=== PATIENT | female | born 1970 | race Caucasian/White ===

== ENCOUNTER 2019-11-13 09:41 | Outpatient (CLI) | payer BC, SELFPAY ==
--- NOTE | ~2019-11-13 | XR_ITS ---
EXAMINATION: XR pelvis 1-2V INDICATION: Bilateral hip pain TECHNIQUE: AP and frog-leg views of the pelvis are obtained. COMPARISON: None available FINDINGS: There is mild bilateral hip osteoarthritis. Bone alignment is normal. There is no fracture. Phleboliths are noted in the pelvis. IMPRESSION: 1. Mild osteoarthritis of the hips. Reviewed, dictated and finalized at location A. ATION MANAGERS
--- NOTE | ~2019-11-13 | XR_ITS ---
EXAMINATION: XR lumbar spine 2-3V DATE: 11/13/2019 10:06 INDICATION: Low back pain TECHNIQUE: Anteroposterior and lateral views of the lumbar spine, and cone-down lateral view of the l umbosacral junction were obtained. COMPARISON: None. FINDINGS: There is no fracture, dislocation, or subluxation. The vertebral body heights are normal. T here is moderate loss of intervertebral disc space height at L5-S1. There are 5 degrees of lumbar dex trocurvature. Phleboliths are noted in the pelvis. The bowel gas pattern is normal. There is mild fac et osteoarthritis of the lower lumbar spine. IMPRESSION: 1. Mild lumbar spondylosis without acute findings. Reviewed, dictated and finalized at location A. ENT POSTER
== END 2019-11-13 09:42 | disposition home or self-care (01) ==
LOC: CHSIMG 09:43
PROVIDERS: PCP Internal Medicine; Visit Provider Internal Medicine
DX: M54.5 Low back pain (principal); M25.552 Pain in left hip; M25.551 Pain in right hip; Z85.3 Personal history of malignant neoplasm of breast
CPT/HCPCS: 72100; 72170

== ENCOUNTER 2019-11-15 05:46 | Emergency (ER) | payer BC, SELFPAY ==
--- NOTE | ~2019-11-15 | XR_ITS ---
EXAMINATION: XR chest 2V DATE: 11/15/2019 06:29 INDICATION: Pleuritic chest pain. TECHNIQUE: Frontal and lateral views of the chest were obtained. COMPARISON: Chest 2 views 03/17/2019, chest CT 01/31/2019 FINDINGS: There is mild scarring at the lung apices. No pleural effusion or pneumothorax. The heart s ize is normal. Surgical clips overlie the chest bilaterally. There are bilateral breast implants. IMPRESSION: 1. Mild scarring at the lung apices. Reviewed, dictated and finalized at location A. N AND RECTAL SURGEON
[2019-11-15 05:50] VITALS: BP 121/69; PULSE 117; RESP 20; TEMP 36.8; O2SAT 95
[2019-11-15 05:58] VITALS: O2SAT 95
--- NOTE | 2019-11-15 05:59 | ED.SOB ---
HPI - SOB/Dyspnea General Chief Complaint: Shortness of Breath/Dyspnea Stated Complaint: Shortness of Breath Time Seen by Provider: 11/15/19 05:59 Source: patient Mode of arrival: ambulatory Limitations: no limitations History of Present Illness HPI Narrative: 49-year-old woman comes in today complaining of pruritic pain on her right side of her back. Patient states that it hurts worse when she takes deep breath. She denies cough or cold symptoms, nausea, vomiting, dysuria, hematuria. She states that she had similar symptoms in the past year and she was diagnosed with a pneumonia. CTA chest in January of 2019 was negative. She has no history of smoking or lung disease. MD elicited complaint: shortness of breath and chest pain Pertinent past history: pneumonia Onset (ago): hour(s) (6) Timing: intermittent Severity: moderate Exacerbating factors: inspiration Relieving factors: nothing Associated symptoms: denies other symptoms Treatment prior to arrival: none Related Data Home oxygen amount: none Home Medications Medication Instructions Recorded Confirmed anastrozole 1 mg PO DAILY 11/15/19 11/15/19 atorvastatin 20 mg PO DAILY 11/15/19 11/15/19 mirtazapine 7.5 mg PO HS 11/15/19 11/15/19 pantoprazole 40 mg PO DAILY 11/15/19 11/15/19 Allergies Allergy/AdvReac Type Severity Reaction Status Date / Time adhesive tape Allergy Unknown BLISTERS Verified 06/14/19 10:36 WHEN APPLIED TO CHEST AREA. Review of Systems Constitutional: Constitutional: Denies chills, Denies fatigue and Denies fever(s) Eyes: Eyes: Denies change in vision and Denies photophobia ENT: Denies dysphagia, Denies nasal congestion and Denies sore throat Cardiovascular: Cardiovascular: Reports as per HPI, Denies chest pain and Denies radiating jaw, neck or arm pain Respiratory: Respiratory: Reports as per HPI, Denies cough, Denies dyspnea and Denies wheezing Gastrointestinal: Gastrointestinal: Denies abdominal pain, Denies diarrhea, Denies nausea and Denies vomiting Genitourinary: Genitourinary: Denies hematuria and Denies dysuria Musculoskeletal: Musculoskeletal: Reports back pain, Denies myalgias, Denies arthralgias, Denies joint swelling and Denies muscle cramps Integumentary/Breasts: Skin/Breast: Denies pruritus, Denies erythema and Denies rash Neurologic: Denies vertigo, Denies dizziness and Denies syncope Hematologic/Lymphatic: Hematologic/Lymphatic: Denies easy bleeding and Denies easy bruising Allergic/Immunologic: Allergic/Immunologic: Denies lip swelling and Denies wheezing [facility] Past Medical History Medical History Barretts esophagus Dyslipidemia GERD (gastroesophageal reflux disease) History of breast cancer History of cardiac disorder Surgical History Surgical History H/O bilateral mastectomy History of esophagogastroduodenoscopy (EGD) Presence of right artificial knee joint (06/14/19) Social History Social History Smoking status: Never smoker Alcohol intake: current Exam Const: General: healthy appearing and alert Nutritional Appearance: obese Orientation/consciousness: patient oriented x3 Limitations: no limitations HENMT: Ears: external ears normal, TM's normal bilaterally and EAC's normal Mouth: Yes moist mucous membranes Eyes: Conjunctivae: conjunctivae normal Pupils: Equal, round and reactive pupils present EOM: EOMs intact bilaterally Resp: Effort & Inspection: normal respiratory effort and not labored Auscultation: clear to auscultation bilaterally, no rales, no rhonchi and no wheezes Cardio: Rate: regular rate Rhythm: regular rhythm Heart sounds: no murmurs GI: Inspection: non-distended GI Palp: No Tenderness to palpation present (GI) and No Guarding due to palpation present (GI) Auscultation: normal bowel sounds :
[2019-11-15 06:26] LABS: Add Urine Microscopic? YES; Appearance Urine Clear (Clear); Bilirubin Urine Negative (Negative); Blood Urine Negative (Negative); Color Urine Yellow (Yellow); Glucose Urine UA Negative (Negative); Ketones Urine Negative (Negative); Leukocyte Esterase Ur Negative (Negative); Nitrate Urine Positive (Negative); Protein Urine Negative (Negative); Specific Grav Ur 1.015 (1.010-1.020); Urobilinogen Urine 0.2 mg/dL (0.2-1.0)
[2019-11-15 06:33] LABS: Basophils Absolute Auto 0.04 K/mm3 (0.00-0.10); Basophils Percent Auto 0.4 % (0.0-1.0); Eosinophils Absolute Auto 0.15 K/mm3 (0.02-0.50); Eosinophils Percent Auto 1.6 % (1.0-6.0); Hemoglobin 12.1 g/dL (12.0-15.0); Immature Granulocyte Absolute 0.03 K/mm3 (0.00-0.00); Immature Granulocyte Percent A 0.3 % (0.0-0.0); Lymphocytes Percent Auto 21.9 % (18.0-42.0); Mean Corpuscular HGB Conc 33.6 g/dL (32.0-36.0); Mean Corpuscular Volume 95.2 fL (78.0-102.0); Monocytes Absolute Auto 0.62 K/mm3 (0.10-0.90); Monocytes Percent Auto 6.8 % (2.0-11.0); Neutrophils Absolute Auto 6.3 K/mm3 (1.7-7.2); Platelet Count Result 207 K/mm3 (150-420); Red Blood Count 3.78 M/mm3 (4.20-5.40); Red Cell Distribution Width 13.6 % (11.6-14.4); White Blood Count 9.1 K/mm3 (4.8-10.8)
[2019-11-15 06:35] LABS: Bacteria Urine 3+ /hpf; RBC Urine 0-2 /hpf (0-2); WBC Urine 0-3 /hpf (0-3)
[2019-11-15 06:49] LABS: Alanine Aminotransferase 30 U/L (14-59); Albumin Level 3.3 g/dL (3.4-5.0); Alkaline Phosphatase 108 U/L (46-116); Anion Gap 12.6 mmol/L (7-16); Aspartate Amino Transferase 22 U/L (15-37); Bilirubin,Total 0.6 mg/dL (0.00-1.00); Blood Urea Nitrogen 15 mg/dL (7-18); Calcium 9.3 mg/dL (8.5-10.1); Carbon Dioxide 30 mmol/L (21-32); Chloride 103 mmol/L (98-108); Estimated CRCL calculation 78 ml/min; Estimated Glomerular Filt Rate 58; Glucose 112 mg/dL (70-99); Osmolality Calculated 295 mOsm/kg (285-295); Potassium 3.6 mmol/L (3.5-5.1); Sodium 142 mmol/L (136-145)
[2019-11-15 07:00] VITALS: BP 115/68; PULSE 100; RESP 18; O2SAT 96
== END 2019-11-15 07:05 | disposition home or self-care (01) ==
PROVIDERS: Emergency Provider Emergency Medicine; PCP Internal Medicine
DX: R07.81 Pleurodynia (principal)
CPT/HCPCS: 36415; 71046; 80053; 81001; 85025; 85380; 99283

== ENCOUNTER 2019-11-16 11:39 | Outpatient (CLI) | payer BC, SELFPAY ==
--- NOTE | ~2019-11-16 | CT_ITS ---
EXAMINATION: CTA chest EXAM DATE: 11/16/2019 13:05 INDICATION: Right-sided pleural chest pain, dyspnea. History of left-sided breast cancer. TECHNIQUE: Spiral CTA of the chest (pulmonary arteries) was performed with 100 cc Omnipaque 350 intr avenous contrast injection. Images were acquired during the pulmonary arterial phase. Coronal maxi mum intensity projection 3D-reconstructions were created by the technologist on dedicated workstation . Axial, coronal and sagittal reformatted images were reviewed. The dose-length product (DLP) for t his examination was 646.67 mGy-cm. The exposure was tailored according to patient size (auto mA exp osure control), and iterative reconstruction (ASIR) was used as additional dose reduction technique. Comparison is made to prior examination from 01/31/2019. FINDINGS: Right lower lobe intralobar, several segmental pulmonary emboli with airspace disease withi n that distribution, could be pulmonary infarction. No thoracic aortic dissection. Linear by basilar subsegmental atelectasis. Trace right pleural effusion. There is small to moderate sized sliding ga stroesophageal hiatal hernia. Tracheobronchial tree is patent. There is no mediastinal, hilar or a xillary lymphadenopathy. There is no pneumothorax. Heart normal in size. No evidence of coronar y arterial calcification. There is hepatic steatosis. There is thoracic spondylosis without osteobl astic or osteolytic lesions identified. IMPRESSION: 1. Positive for right lower interlobar, segmental pulmonary emboli. Associated right lower lobe infa rction. 2. Bibasilar subsegmental atelectasis. 3. Trace right pleural effusion. 4. Small to moderate hiatal hernia. I discussed pulmonary emboli with Sakina Gibson MD at 11/16/2019 13:15 HUMAN RESOURCES TEMP . Reviewed, dictated and finalized at location B. N RESOURCES TEMP IMPRESSION: 1. Positive for right lower interlobar, segmental pulmonary emboli. Associated right lower lobe infarction. 2. Bibasilar subsegmental atelectasis. 3. Trace right pleural effusion. 4. Small to moderate hiatal hernia. I discussed pulmonary emboli with Sakina Gibson MD at 11/16/2019 13:15 HUMAN RESOURCES TEMP .
== END 2019-11-16 11:40 | disposition home or self-care (01) ==
LOC: CHSIMG 11:41
PROVIDERS: PCP Internal Medicine; Visit Provider Internal Medicine
DX: R07.89 Other chest pain (principal); R06.00 Dyspnea, unspecified; Z85.3 Personal history of malignant neoplasm of breast
CPT/HCPCS: 71275; Q9965

== ENCOUNTER 2019-11-22 11:36 | Outpatient (CLI) | payer BC, SELFPAY ==
--- NOTE | ~2019-11-22 | XR_ITS ---
EXAMINATION: XR chest 2V 11/22/2019 11:48 INDICATION: Chest pain PROCEDURE: 2 view chest COMPARISON: 11/15/2019 FINDINGS: The lungs are clear. The cardiomediastinal silhouette is within normal limits. There are no pleural effusions. There is no pneumothorax suspected. IMPRESSION: 1: NO ACUTE CARDIOPULMONARY DISEASE. Reviewed, dictated and finalized at location B. ICAL NURSE PRACTITIONER
== END 2019-11-22 11:37 | disposition home or self-care (01) ==
LOC: CHSLAB 11:38
PROVIDERS: PCP Internal Medicine; Visit Provider Internal Medicine
DX: R07.9 Chest pain, unspecified (principal); R06.02 Shortness of breath
CPT/HCPCS: 71046

== ENCOUNTER 2020-05-20 07:41 | Outpatient (CLI) | payer BC, SELFPAY ==
--- NOTE | ~2020-05-20 | CT_ITS ---
EXAMINATION: CTA chest PE protocol DATE: 05/20/2020 08:31 INDICATION: Patient with history of left breast cancer and bilateral mastectomy, prior pulmonary embo lism. TECHNIQUE: Computed tomography angiography (CTA) of the chest was performed with 100 mL Omnipaque-350 intravenous contrast timed to evaluate the pulmonary arteries. Coronal maximum intensity projection 3D-reconstructions were created by the technologist. The dose-length product (DLP) was 685.26 mGy-cm. Automated exposure control and iterative reconstruction technique were employed. COMPARISON: 11/16/2019, 01/31/2019 FINDINGS: The pulmonary arteries are well-opacified. There is persistent but decreased thrombus in lara bsegmental pulmonary arterial branches in the right lower lobe. The thrombus is somewhat eccentricall y located and demonstrates calcification, consistent with a chronic finding. No acute pulmonary embol i are identified. There are changes of bilateral mastectomy with implant reconstruction. There are tr taylor pleural effusions. Mild dependent atelectasis is noted. There is near complete resolution of band like opacity right lower lobe. There is a persistent but decreased cluster of nodules in the superior segment of the left lower lobe, likely resolving infection/inflammation. No pathologically enlarged thoracic lymph nodes are identified. The heart size is normal. A moderate-sized sliding hiatal hernia is noted. IMPRESSION: 1. Findings consistent with chronic and partially resolved emboli in the right lower lobe. No acute p ulmonary emboli identified. Reviewed, dictated and finalized at location A. IMPRESSION: 1. Findings consistent with chronic and partially resolved emboli in the right lower lobe. No acute pulmonary emboli identified.
== END 2020-05-20 07:42 | disposition home or self-care (01) ==
LOC: CHSIMG 07:43
PROVIDERS: PCP Internal Medicine; Visit Provider Internal Medicine
DX: I26.99 Other pulmonary embolism without acute cor pulmonale (principal)
CPT/HCPCS: 71275; Q9965

== ENCOUNTER 2020-06-07 08:06 | Outpatient (CLI) | payer BC, SELFPAY ==
--- NOTE | 2020-06-07 08:39 | ECG_ITS ---
Measurements Intervals [place] Rate: 81 P: 39 [place]: 143 QRS: 30 QRSD: 99 T: 30 QT: 366 QTc: 427 Interpretive Statements SINUS RHYTHM BASELINE ARTIFACT- I, III, AVR, AVL, AVF NORMAL ECG Electronically Signed On 06-07-2020 8:57:44 CDT by Ishaan Tristan D.O.
[2020-06-07 08:54] LABS: Basophils Absolute Auto 0.1 K/mm3 (0.0-0.1); Basophils Percent Auto 0.7 % (0.2-1.2); Eosinophils Absolute Auto 0.1 K/mm3 (0-0.3); Eosinophils Percent Auto 1.6 % (0-4.4); Hematocrit 38.7 % (37.0-47.0); Hemoglobin 13.1 g/dL (12.0-15.0); Immature Granulocyte Absolute 0.02 K/mm3 (0.00-0.031); Immature Granulocyte Percent A 0.2 % (0-0.5); Lymphocytes Absolute Auto 2.77 K/mm3 (0.9-3.2); Lymphocytes Percent Auto 32.3 % (18.3-44.2); Mean Corpuscular HGB Conc 33.9 g/dl (32-36); Mean Corpuscular Hemoglobin 32.4 pg (26-34); Mean Corpuscular Volume 95.8 fl (80-100); Mean Platelet Volume 9.6 fl (7.4-10.4); Monocytes Absolute Auto 0.6 K/mm3 (0.1-0.6); Monocytes Percent Auto 6.9 % (2.6-8.5); Neutrophils Percent Auto 58.3 % (45.5-73.1); Platelet Count Result 247 k/mm3 (150-375); Red Blood Count 4.04 M/mm3 (4.2-5.4); Red Cell Distribution Width 13.7 % (11.5-14.5); White Blood Count 8.6 K/mm3 (4.5-10.0)
== END 2020-06-07 08:07 | disposition home or self-care (01) ==
LOC: ANHSURGERY 08:08
PROVIDERS: PCP Internal Medicine; Visit Provider Orthopaedic Surgery
DX: Z01.818 Encounter for other preprocedural examination (principal); E78.00 Pure hypercholesterolemia, unspecified; M17.12 Unilateral primary osteoarthritis, left knee
CPT/HCPCS: 36415; 85025; 93005

== ENCOUNTER 2020-06-22 01:10 | Outpatient (CLI) | payer BC, SELFPAY ==
[2020-06-22 17:59] LABS: SARS-CoV-2 RNA PCR Negative
== END 2020-06-22 01:11 | disposition home or self-care (01) ==
LOC: ANHCOVIDDT 01:10
PROVIDERS: PCP Internal Medicine; Visit Provider Orthopaedic Surgery
DX: Z01.812 Encounter for preprocedural laboratory examination (principal); Z20.828 Contact with and (suspected) exposure to other viral communicable diseases
CPT/HCPCS: 87635; C9803; U0003

== ENCOUNTER 2020-06-25 01:12 | Day surgery (SDC) | payer BC, SELFPAY ==
[2020-06-07 08:23] VITALS: BP 128/70; PULSE 93; RESP 18; TEMP 36.6; O2SAT 97
[2020-06-07 08:50] VITALS: BMI 39.9
[2020-06-25] VITALS (14 sets, daily range): BP systolic 112–131; BP diastolic 53–75; PULSE 90–123; RESP 8–18; TEMP 36.2–36.8; O2SAT 92–98
--- NOTE | ~2020-06-25 | XR_ITS ---
EXAMINATION: KNEE ONE/TWO VIEW-RIGHT DATE: 06/25/2020 16:00 INDICATION: Postoperative evaluation following left knee medial unicompartmental arthroplasty TECHNIQUE: Anteroposterior and lateral views of the left knee were obtained. COMPARISON: 06/22/2020 FINDINGS: Left knee medial unicompartmental arthroplasty appears well seated and in near anatomic alignment. N o fractures identified. Antral and patellofemoral joint spaces appear normal on nonweightbearing imag ing. Expected postoperative subcutaneous and intra-articular gas. IMPRESSION: 1. Left knee medial unicompartmental arthroplasty, negative for postoperative purposes. Reviewed, dictated and finalized at location A. IMPRESSION: 1. Left knee medial unicompartmental arthroplasty, negative for postoperative p urposes.
--- NOTE | 2020-06-25 07:02 | WPDHPUPDATE1 ---
History and Physical Update Update Date/Time: 06/25/20 07:02 History and Physical has been reviewed, including an updated exam of the patient. There are NO changes in the patient's condition. Risks, benefits, and alternatives have been discussed and questions answered. Patient agrees to proceed with procedure.
--- NOTE | 2020-06-25 08:04 | WPDANESEPPF ---
Anes - Initial Pre Proc Eval Procedure: Operation Date: 06/25/20 14:00 Proposed Procedures p Left Medial Partial Knee Arthroplasty - Daryn Pisano MD Date/Time: 06/25/20 08:04 Surgeon: Daryn Pisano MD Pre Op Diagnosis: Primary OA Left Knee Patient Data Age: 50 Gender: F Height: 1.65 m Weight: 108.8 kg Last Vital Signs Temp 36.6 C 06/07/20 08:23 Pulse 93 06/07/20 08:23 Resp 18 06/07/20 08:23 BP 128/70 06/07/20 08:23 Pulse Ox 97 06/07/20 08:23 Allergies Allergy/AdvReac Type Severity Reaction Status Date / Time adhesive tape AdvReac Mild BLISTERS Verified 06/25/20 12:18 WHEN APPLIED TO CHEST AREA. Home Medications Medication Instructions Recorded Confirmed Type anastrozole [Arimidex] 1 mg PO DAILY 11/15/19 06/25/20 History atorvastatin 20 mg PO DAILY 11/15/19 06/25/20 History pantoprazole 40 mg PO DAILY 11/15/19 06/25/20 History apixaban 2.5 mg tablet 2.5 mg PO BID 05/23/20 06/25/20 History cyanocobalamin (vitamin B-12) 5,000 mcg PO DAILY 06/07/20 06/25/20 History multivitamin [Daily Multi-Vitamin] 1 tablet PO DAILY 06/07/20 06/25/20 History Patient hx anesthesia problems: none Family hx anesthesia problems: none PMFSH Past Medical History Medical History (Updated 06/25/20 @ 12:48 by Jordon Stearns DO) Arthritis of left knee Barretts esophagus Dyslipidemia GERD (gastroesophageal reflux disease) History of breast cancer History of cardiac disorder History of pulmonary embolism Surgical History Surgical History (Updated 06/25/20 @ 08:03 by Jordon Stearns DO) H/O bilateral mastectomy History of esophagogastroduodenoscopy (EGD) History of hysterectomy History of repair of hiatal hernia Presence of right artificial knee joint (06/14/19) Social History Social History Smoking status: Never smoker Alcohol intake: current Alcohol use details: STATES VERY RARELY Substance use: never Living arrangements: alone Spiritual care concerns: No Anes - Eval Final PreProcedure Day of Procedure 06/25/20 08:04 Patient weight: obese Heart: regular rate and rhythm Lungs: clear to auscultation and normal air movement Airway: Mallampati scale class II Neurological: alert and oriented Last oral intake: >/= 8 hours ASA classification: III Emergent: no Anesthetic plan: proceed Anesthesia type and monitoring: general LMA and standard monitoring Informed Consent: The patient's anesthetic plan and its attendant risks and benefits were discussed with the patient/family/POA. Questions were solicited and answers provided to the satisfaction of the patient/family/POA.
--- NOTE | 2020-06-25 08:04 | WPDANESPNB ---
Anes - Peripheral Nerve Block Date/Time: 06/25/20 08:04 I have discussed with the patient/family/POA the placement of a peripheral nerve block for post-operative pain management, including associated risks, benefits, complications, and side effects. Alternative methods of post-operative analgesia were detailed. Questions were solicited and answers provided to the satisfaction of the patient/family/POA. Time-Out: A pre-procedural Time-Out was completed immediately before starting the procedure and confirmed: Patient Identification, Site, Procedure, Patient Position and the Availability of Requisite Equipment. Clinical Indications: Acute post-operative pain management requested by the operative surgeon. Nerve Block Insertion Note Anes-nerve block: adductor canal left Patient position: supine Skin prep: chlorhexidine Needle: 22 gauge, stimulating, insulated echogenic needle. Needle length: 80 mm Technique: ultrasound Injectate: bupivacaine 0.5% with epi 5 mcg/ml (30cc) Observations: tolerated well Complications: none Procedure start time:: 1327 Procedure end time:: 1330
[2020-06-25] MEDS: ACETAMINOPHEN 500 MG TABLET 1000 MG PO (12:17)
[2020-06-25] MEDS: LACTATED RINGERS 1,000 ML 30 ML IV CONT ×2 (13:11→15:49)
[2020-06-25] MEDS: KETOROLAC 15 MG/ML VIAL (*BKC) IV PUSH ×2 (13:18→20:17)
[2020-06-25] MEDS: TRANEXAMIC ACID 1,000MG/ISO100 1,000 MG/100 ML BAG 200 MG IVPB (13:23)
--- NOTE | 2020-06-25 13:32 | SUR.PREOP ---
1215-DR. ABDUL AWARE PT HAD SCRAMBLED EGG (EGG ONLY, NO MILK) AT 0600 THIS AM---STATES MAY PROCEED.
[2020-06-25] MEDS: ceFAZolin 2 GM/D5W 50 ML 2 GM/50 ML BAG IVPB ×2 (13:41→20:58)
--- NOTE | 2020-06-25 15:44 | P.OP_ITS ---
Procedure Note - Detailed Date of procedure: 06/25/20 Pre-op diagnosis: Primary OA Left Knee Post-op diagnosis: same Procedure performed: Partial knee arthroplasty, medial compartment. Implants: Triathlon PKR X3 system tibial insert size #3, 8 mm thickness, femoral component size 4. Tibial base tibial base plate size 3. Anesthesia: GETA and regional (subsartorial block.) Surgeon: Daryn Pisano MD Estimated blood loss (mL): 50 Drains: No Complications: None Findings: Operative details: The patient was given a general anesthetic. Preoperative antibiotics were given. The knee was prepped and draped in the usual sterile fashion. A longitudinal incision was created along the medial aspect of the patellar tendon. A minimally invasive optimized mid vastus approach was completed. No medial release was taken. The external alignment guide was used to cut the tibia with anatomic posterior slope. A 4 millimeter resection was taken. The spacer block technique was utilized to measure flexion and extension gaps after the osteophytes were removed. The difference was used to calculate the distal resection. The distal cutting block was utilized to cut the distal femur. The AP and chamfer block was utilized for this last cuts. The femur and tibia were sized. Range of motion and gap balancing was assessed. This was tested with the 1.5 millimeter spacer. The bony surfaces were cleaned with lavaged. Lug holes were drilled. The real components were cemented into position. Excess cement was carefully removed. The tourniquet was released. Meticulous hemostasis was maintained. The wound was closed with interrupted 1 Vicryl suture followed by a running 0 Quill suture and 2-0 Quill suture. Steri- Strips are placed in the skin the patient was extubated and brought to recovery room in stable condition. There were no complications.
[2020-06-25] MEDS: ONDANSETRON INJ 4 MG/2 ML VIAL IV PUSH (16:55)
--- NOTE | 2020-06-25 17:01 | ECG_ITS ---
Measurements Intervals [place] Rate: 121 P: 56 [place]: 152 QRS: 82 QRSD: 106 T: 59 QT: 361 QTc: 513 Interpretive Statements SINUS TACHYCARDIA FREQUENT ATRIAL COUPLETS AND ATRIAL PREMATURE COMPLEXES INCOMPLETE RIGHT BUNDLE BRANCH BLOCK ABNORMAL ECG Electronically Signed On 06-25-2020 19:35:06 CDT by Ishaan Tristan D.O.
--- NOTE | 2020-06-25 17:50 | SUR.PHASEI ---
RN noticed EKG changes that appeared to be A-fib at 1645. RN called anesthesia and a stat EKG was ordered. The [address] w/ PACs and PVCs. Patient admitted to room 253 w/ telemetry. A cardiology consult was added as well. Dr. Pisano notified of EKG changes, cardiology consult, and med surg w/ telemetry.
--- NOTE | 2020-06-25 18:02 | PC.NURSE ---
EKG results shown to Dr. Leger and Marcia Bhat NP when patient was admitted to the floor.
[2020-06-25] MEDS: DOCUSATE SODIUM 100 MG CAPSULE PO (18:57)
[2020-06-25] MEDS: ASPIRIN 81 MG ENTERIC TABLET PO (18:57)
--- NOTE | 2020-06-25 19:22 | WPDCN ---
Assessment and Plan Assessment and plan (1) Sinus tachycardia: Code(s): R00.0 - Tachycardia, unspecified Status: Acute Assessment and Plan: patient has been noted to have postop sinus tachycardia for unclear reasons. She certainly appears in no distress, not dehydrated, and no pain and oxygenating well. PE seems unlikely as she is not having a chest discomfort or shortness of breath. Thyroid disease or heart problems seem unlikely. Likely this is nonspecific. Looking at the heart rates recorded in EMR, looks like she is often in the 90-100 beat per minute range so this may be a variation of normal. Will check a TSH, H&H and troponin. (2) APC (atrial premature contractions): Code(s): I49.1 - Atrial premature depolarization Status: Acute Assessment and Plan: Also was having APCs postop which have resolved. Likely nonspecific. (3) Status post left partial knee replacement: Code(s): Z96.652 - Presence of left artificial knee joint Status: Acute Assessment and Plan: Status post uneventful Partial knee replacement today. (4) History of pulmonary embolism: Code(s): Z86.711 - Personal history of pulmonary embolism Status: Acute Assessment and Plan: history of PE in November 2019 thought to be related to anastrozole use. Has been anticoagulated with Eliquis at DVT prophylaxis dose of 2.5 mg BID. HPI Data of Consult Date/Time: 06/25/20 19:22 Requesting Physician: Daryn Pisano MD Primary Care Provider: Sakina Gibson MD Consult Narrative Narrative: Date of service: 06/25/2020 Malena Lopez is a 50 year old female who I was asked to see at the request of Dr. Pisano for my advice and opinion regarding her Abnormal EKG, in consultation. Ms Lopez underwent an uneventful partial knee replacement today by Dr. Constance Curry. Postoperatively she had an abnormal EKG, with sinus tachycardia and frequent APCs. She continues to run a heart rate of about 110 beats per minute. she has been eating and drinking normally, and is not in much pain. No history of any thyroid disease or heart disease. She does see a termite treater helper, Dr.Nilesh Nesbitt at the [facility] but only for hyperlipidemia. She does have a history of PE in November 2019 and has been taking Eliquis although only at 2.5 mg b.i.d.. Review of Systems Constitutional: Constitutional: Reports no additional constitutional complaints Eyes: Eyes: Reports no additional eye complaints ENT: Denies epistaxis Cardiovascular: Cardiovascular: Denies chest pain, Denies diaphoresis, Reports pedal edema ( Occasional foot edema), Denies leg edema, Denies lightheadedness and Denies palpitations Respiratory: Respiratory: Reports no additional respiratory complaints, Denies cough, Denies dyspnea and Denies dyspnea on exertion Gastrointestinal: Gastrointestinal: Denies abdominal pain and Denies hematochezia Genitourinary: Genitourinary: Denies dysuria Musculoskeletal: Musculoskeletal: Denies arthralgias ( minimal pain from the knee, had a nerve block) Integumentary/Breasts: Skin/Breast: Denies rash Neurologic: Denies confusion Psychiatric: Psychiatric: Denies no additional psychiatric complaints and Denies behavioral changes [facility] Past Medical History Medical History (Updated 06/25/20 @ 19:36 by Cata Leger MD) Arthritis of left knee Barretts esophagus Dyslipidemia GERD (gastroesophageal reflux disease) History of breast cancer 2018. Left-sided breast cancer. Had a double mastectomy, chemotherapy and radiation therapy. History of cardiac disorder Sees a termite treater helper in [place] for hyperlipidemia History of pulmonary embolism November 2019, takes Eliquis Surgical History Surgical History (U
[2020-06-25 20:20] LABS: Hematocrit 36.8 % (37.0-47.0); Hemoglobin 12.3 g/dL (12.0-15.0); Mean Corpuscular HGB Conc 33.4 g/dl (32-36); Mean Corpuscular Hemoglobin 32.6 pg (26-34); Mean Corpuscular Volume 97.6 fl (80-100); Mean Platelet Volume 9.5 fl (7.4-10.4); Platelet Count Result 212 k/mm3 (150-375); Red Blood Count 3.77 M/mm3 (4.2-5.4); White Blood Count 6.1 K/mm3 (4.5-10.0)
[2020-06-25 20:44] LABS: Troponin I < 0.012 ng/mL (0.000-0.034)
[2020-06-25] MEDS: SENNOSIDES 8.6 MG TABLET 17.2 MG PO (20:59)
[2020-06-25 21:03] LABS: Thyroid Stimulating Hormone 0.983 uIU/mL (0.465-4.680)
[2020-06-26] VITALS (8 sets, daily range): BP systolic 105–107; BP diastolic 46–58; PULSE 83–109; RESP 15–16; TEMP 36.8–37; O2SAT 94–98
[2020-06-26] MEDS: KETOROLAC 15 MG/ML VIAL (*BKC) IV PUSH ×3 (00:57→12:48)
[2020-06-26] MEDS: ceFAZolin 2 GM/D5W 50 ML 2 GM/50 ML BAG IVPB ×2 (05:48→12:49)
[2020-06-26 06:45] LABS: Basophils Percent Auto 0.1 % (0.2-1.2); Hematocrit 33.9 % (37.0-47.0); Hemoglobin 11.5 g/dL (12.0-15.0); Immature Granulocyte Absolute 0.09 K/mm3 (0.00-0.031); Immature Granulocyte Percent A 0.8 % (0-0.5); Lymphocytes Absolute Auto 1.19 K/mm3 (0.9-3.2); Lymphocytes Percent Auto 9.9 % (18.3-44.2); Mean Corpuscular HGB Conc 33.9 g/dl (32-36); Mean Corpuscular Hemoglobin 32.4 pg (26-34); Mean Corpuscular Volume 95.5 fl (80-100); Mean Platelet Volume 9.6 fl (7.4-10.4); Monocytes Absolute Auto 0.3 K/mm3 (0.1-0.6); Monocytes Percent Auto 2.4 % (2.6-8.5); Neutrophils Absolute Auto 10.4 K/mm3 (1.3-6.7); Neutrophils Percent Auto 86.8 % (45.5-73.1); Platelet Count Result 216 k/mm3 (150-375); Red Blood Count 3.55 M/mm3 (4.2-5.4); Red Cell Distribution Width 13.8 % (11.5-14.5)
[2020-06-26 06:59] LABS: Anion Gap 5 mmol/L (8-16); Blood Urea Nitrogen 14 mg/dL (7-17); Calcium 9.1 mg/dL (8.4-10.2); Carbon Dioxide 28 mmol/L (22-30); Chloride 104 mmol/L (98-107); Estimated CRCL calculation 104 ml/min; Estimated Glomerular Filt Rate > 60; Glucose 190 mg/dL (65-105); Sodium 137 mmol/L (137-145)
--- NOTE | 2020-06-26 08:39 | P.PNAN_ITS ---
Anes - Prog Note Post-Op Date/Time: 06/26/20 08:39 Cardiovascular status: normal Respiratory status: normal Airway patency: baseline Mental status: baseline Post-Op hydration status: normal Vital Signs: Last Vital Signs Temp 36.9 C 06/26/20 02:00 Pulse 83 06/26/20 04:00 Resp 16 06/26/20 02:00 BP 105/54 L 06/26/20 02:00 Pulse Ox 94 06/26/20 02:00 Pain Score (VAS): 0 I/O: Intake & Output 06/25/20 06/26/20 06/26/20 23:59 07:59 15:59 Intake Total 600 150 Balance 600 150 Laboratory Tests 06/26/20 06:29 06/26/20 06:29 06/25/20 06/25/20 06/26/20 20:16 20:16 06:29 WBC 6.1 12.0 H RBC 3.77 L 3.55 L Hgb 12.3 11.5 L Hct 36.8 L 33.9 L MCV 97.6 95.5 MCH 32.6 32.4 MCHC 33.4 33.9 RDW 14.0 13.8 Plt Count 212 216 MPV 9.5 9.6 Immature Gran % (Auto) 0.8 H Neut % (Auto) 86.8 H Lymph % (Auto) 9.9 L [place] % (Auto) 2.4 L Eos % (Auto) 0.0 Baso % (Auto) 0.1 L Lymph # (Auto) 1.19 [place] # (Auto) 0.3 Eos # (Auto) 0.0 Baso # (Auto) 0.0 Abs Immat Gran (auto) 0.09 H Absolute Neuts (auto) 10.4 H Absolute Nucleated RBC 0.0 Nucleated RBC % 0.0 Sodium Potassium Chloride Carbon Dioxide Anion Gap BUN Creatinine Estim Creat Clear Calc Estimated GFR Glucose Calcium Troponin I < 0.012 TSH 0.983 06/26/20 06:29 WBC RBC Hgb Hct MCV MCH MCHC RDW Plt Count MPV Immature Gran % (Auto) Neut % (Auto) Lymph % (Auto) [place] % (Auto) Eos % (Auto) Baso % (Auto) Lymph # (Auto) [place] # (Auto) Eos # (Auto) Baso # (Auto) Abs Immat Gran (auto) Absolute Neuts (auto) Absolute Nucleated RBC Nucleated RBC % Sodium 137 Potassium 4.0 Chloride 104 Carbon Dioxide 28 Anion Gap 5 L BUN 14 Creatinine 0.70 Estim Creat Clear Calc 104 Estimated GFR > 60 Glucose 190 H Calcium 9.1 Troponin I TSH Post-procedural complaints: none Patient Feedback: Patient satisfied with anesthetic care.
[2020-06-26] MEDS: ATORVASTATIN 20 MG TABLET PO (09:18)
[2020-06-26] MEDS: ASPIRIN 81 MG ENTERIC TABLET PO (09:18)
[2020-06-26] MEDS: ANASTROZOLE (*CHEMO) 1 MG TABLET PO (09:18)
[2020-06-26] MEDS: CYANOCOBALAMIN 1,000 MCG TABLET 5000 MCG PO (09:19)
[2020-06-26] MEDS: MULTIVITAMINS THERAPEUTIC TAB (*BKC) 1 TABLET PO (09:19)
[2020-06-26] MEDS: DOCUSATE SODIUM 100 MG CAPSULE PO (09:19)
[2020-06-26] MEDS: PANTOPRAZOLE 40 MG TABLET PO (09:19)
--- NOTE | 2020-06-26 11:56 | PM.PNORT ---
Progress Note: A&P Assessment and Plan (1) Status post left partial knee replacement: Code(s): Z96.652 - Presence of left artificial knee joint Status: Acute Assessment and Plan: Postoperative day 1 status post left partial knee arthroplasty. Quad function is poor. She feels somewhat numb. I anticipate improvement over the course of the day. Likely discharge home after afternoon therapy. EKG changes postoperatively. Currently asymptomatic. Appreciate cardiology consultation. Subjective Subjective Date/Time Seen: 06/26/20 11:56 Interval history: Comfortable at rest. The leg feels somewhat numb. Exam Narrative: Exam Narrative: Quad activity is poor. No chest pain or shortness of breath. Calf nontender. No distal edema. Neurologic status intact. Objective Data Vital Signs Vital Signs: Vital Signs - 24 hr 06/25/20 12:17 06/25/20 15:49 06/25/20 16:05 Temperature 36.6 C 36.2 C L Pulse Rate 102 H 106 H 100 Respiratory Rate 16 8 L 13 Blood Pressure 131/75 113/67 Pulse Oximetry 98 97 98 06/25/20 16:20 06/25/20 16:35 06/25/20 16:50 Temperature Pulse Rate 104 H 101 H 117 H Respiratory Rate 14 14 17 Blood Pressure 119/57 L 118/65 120/53 L Pulse Oximetry 94 96 97 06/25/20 17:05 06/25/20 17:15 06/25/20 17:45 Temperature 36.3 C L Pulse Rate 108 H 104 H 104 H Respiratory Rate 18 16 15 Blood Pressure 117/55 L 119/74 124/61 Pulse Oximetry 97 97 94 06/25/20 18:00 06/25/20 18:30 06/25/20 19:30 Temperature 36.5 C 36.7 C 36.6 C Pulse Rate 105 H 104 H 110 H Respiratory Rate 15 14 16 Blood Pressure 117/62 128/75 115/55 L Pulse Oximetry 94 96 96 06/25/20 20:00 06/25/20 22:00 06/26/20 00:00 Temperature 36.8 C Pulse Rate 123 H 90 98 Respiratory Rate 16 Blood Pressure 112/60 Pulse Oximetry 92 06/26/20 02:00 06/26/20 04:00 06/26/20 10:00 Temperature 36.9 C 36.8 C Pulse Rate 88 83 96 Respiratory Rate 16 16 Blood Pressure 105/54 L 107/58 L Pulse Oximetry 94 97 06/26/20 10:13 Temperature Pulse Rate Respiratory Rate Blood Pressure Pulse Oximetry 96 Intake/Output Intake/Output: Intake & Output 06/23/20 06/24/20 06/25/20 06/26/20 23:59 23:59 23:59 23:59 Intake Total 750 490 Balance 750 490 Meds/Results Medications: Active Medications Generic Name Dose Route Start Last Admin Trade Name Freq PRN Reason Stop Dose Admin Anastrozole 1 mg 06/26/20 09:00 06/26/20 09:18 Arimidex PO 07/26/20 09:01 1 mg DAILY HELEN Administration Aspirin 81 mg 06/25/20 17:21 06/26/20 09:18 Aspirin Ec PO 81 mg BID HELEN Administration Atorvastatin Calcium 20 mg 06/26/20 09:00 06/26/20 09:18 Lipitor PO 20 mg DAILY HELEN Administration Cyanocobalamin 5,000 mcg 06/26/20 09:00 06/26/20 09:19 Vitamin B-12 Tab PO 5,000 mcg DAILY HELEN Administration Cyclobenzaprine HCl 10 mg 06/25/20 17:21 Flexeril PO Q8H PRN Spasms Diphenhydramine HCl 25 mg 06/25/20 17:21 Benadryl Inj IV PUSH Q6H PRN Itching Docusate Sodium 100 mg 06/25/20 17:21 06/26/20 09:19 Colace Capsule PO 100 mg BID HELEN Administration Acetaminophen 1,000 mg in 100 mls @ 400 mls/hr 06/25/20 18:00 06/26/20 07:00 Ofirmev 1,000 Mg Ivpb IVPB 06/26/20 18:01 Infused Q6HR HELEN Infusion Cefazolin Sodium 2 gm in 50 mls @ 100 mls/hr 06/25/20 21:00 06/26/20 06:10 Ancef 2 Gm/D5w 50 Ml IVPB 06/26/20 21:01 Infused Q8H HELEN Infusion Ketorolac Tromethamine 15 mg 06/25/20 18:00 06/26/20 06:34 Toradol Inj IV PUSH 06/26/20 18:01 15 mg Q6H HELEN Administration Meperidine HCl 100 mg 06/25/20 17:21 Demerol IM Q3H PRN Pain10, breakthough only Multivitamins Therapeutic 1 tablet 06/26/20 09:00 06/26/20 09:19 Multivitamins Therapeutic(*Bkc PO 1 tablet DAILY HELEN Administration Naloxone HCl 0.1 mg 06/25/20 17:21 Narcan IV PUSH Q2M PRN Opiate Reversal Onda
--- NOTE | 2020-06-26 14:47 | PM.PNCARD ---
Progress Note: A&P Assessment and Plan (1) Sinus tachycardia: Code(s): R00.0 - Tachycardia, unspecified Status: Acute Assessment and Plan: Noted to have postop sinus tachycardia for unclear reasons . In no distress, not dehydrated, no pain and oxygenating well. PE seems unlikely as she is not having a chest discomfort or shortness of breath. TSH is within normal limits. Troponin negative. Hemoglobin and hematocrit stable. Telemetry reveals mostly sinus rhythm. DC tele (2) APC (atrial premature contractions): Code(s): I49.1 - Atrial premature depolarization Status: Acute Assessment and Plan: APCs postoperatively which have resolved. (3) Status post left partial knee replacement: Code(s): Z96.652 - Presence of left artificial knee joint Status: Acute Assessment and Plan: Status post uneventful Partial knee replacement today. (4) History of pulmonary embolism: Code(s): Z86.711 - Personal history of pulmonary embolism Status: Acute Assessment and Plan: history of PE in November 2019 thought to be related to anastrozole use. Has been anticoagulated with Eliquis at DVT prophylaxis dose of 2.5 mg BID. Additional Plan No further cardiac recommendations. Cardiology will sign off. Please do not hesitate to call if we can be of further assistance. Plan discussed with Dr Leger [id number] 06/26/2020 Subjective Date/time seen: 06/26/20 14:47 Interval history: Follow-up for: EKG changes postoperatively, tachycardia Date of service: 06/26/2020 Subjective: Denied chest discomfort, shortness of breath, lightheadedness or palpitations. Knee is still numb but the block is starting to wear off. Review of Systems Constitutional: Constitutional: Denies chills and Denies fever(s) Eyes: Eyes: Denies blurry vision ENT: Reports Normal hearing present and Denies epistaxis Cardiovascular: Cardiovascular: Denies chest pain, Denies diaphoresis, Reports pedal edema ( Occasional foot edema), Denies leg edema, Denies lightheadedness, Denies palpitations, Denies dyspnea and Denies dyspnea on exertion Respiratory: Respiratory: Denies cough, Denies dyspnea and Denies dyspnea on exertion Gastrointestinal: Gastrointestinal: Denies abdominal pain, Denies hematochezia, Denies nausea and Denies vomiting Genitourinary: Genitourinary: Denies hematuria and Denies dysuria Musculoskeletal: Musculoskeletal: Denies arthralgias ( minimal pain from the knee, had a nerve block) Integumentary/Breasts: Skin/Breast: Denies rash Neurologic: Denies behavioral changes and Denies confusion Psychiatric: Psychiatric: Denies no additional psychiatric complaints, Denies behavioral changes and Denies confusion Endocrine: Endocrine: Denies palpitations Hematologic/Lymphatic: Hematologic/Lymphatic: Denies easy bleeding and Denies easy bruising Allergic/Immunologic: Allergic/Immunologic: Denies lip swelling, Denies throat swelling and Denies tongue swelling Exam Narrative: Exam Narrative: Laying comfortably in bed. No distress. Const: General: comfortable and no acute distress; No confusion HENMT: General nose exam: no epistaxis Mouth: Yes moist mucous membranes Eyes: EOM: EOMs intact bilaterally Neck: Neck: supple and no JVD Resp: Effort & Inspection: normal respiratory effort Auscultation: clear to auscultation bilaterally Cardio: Rate: regular rate and tachycardic Rhythm: regular rhythm Heart sounds: no gallops, no murmurs and no rubs Peripheral pulses: Peripheral pulses 2+ throughout Other: Jose Miguel hose are on bilaterally. GI: Inspection: non-distended GI Palp: Yes Soft to palpation Auscultation: normal bowel sounds Skin: General skin exam: normal color Wounds: no wounds Neuro:
== END 2020-06-26 17:31 | disposition home or self-care (01) ==
LOC: ANHSURGERY 12:01 → ANH2MED 17:24
PROVIDERS: Internal Medicine Cardiovascular Disease; PCP Internal Medicine; Visit Provider Orthopaedic Surgery
PROC: (CPT 27446; principal; 2020-06-25 14:00)
DX: M17.12 Unilateral primary osteoarthritis, left knee (principal); R00.0 Tachycardia, unspecified; I49.1 Atrial premature depolarization; G89.18 Other acute postprocedural pain; E78.5 Hyperlipidemia, unspecified; K21.9 Gastro-esophageal reflux disease without esophagitis; Z85.3 Personal history of malignant neoplasm of breast; Z86.711 Personal history of pulmonary embolism; Z79.01 Long term (current) use of anticoagulants; Z79.811 Long term (current) use of aromatase inhibitors; E66.01 Morbid (severe) obesity due to excess calories; Z68.41 Body mass index [BMI] 40.0-44.9, adult; Z90.13 Acquired absence of bilateral breasts and nipples; Z92.21 Personal history of antineoplastic chemotherapy; Z92.3 Personal history of irradiation
CPT/HCPCS: 27446; 64447; 36415; 73560; 80048; 84443; 84484; 85025; 85027; 93005; 97116; 97161; 97165; 97530; A9270; C1713; C1776; J0131; J0171; J0690; J1100; J1885; J2250; J2270; J2405; J2704; J2795; J3010; J7120

== ENCOUNTER 2021-03-25 15:01 | Outpatient (CLI) | payer BC, SELFPAY ==
--- NOTE | ~2021-03-25 | XR_ITS ---
XR ankle LT min 3V DATE: 03/25/2021 15:24 INDICATION: Pain of ankle and plantar foot region TECHNIQUE: 4 views COMPARISON: None FINDINGS: Some calcified phleboliths are identified in the anterior lower leg. Mild plantar calcaneal enthesopathy, without erosive change or periostitis. No fracture or dislocatio n of the ankle or disruption of the ankle mortise. No periosteal reaction or bone destruction. IMPRESSION: Plantar calcaneal enthesopathy Reviewed, dictated and finalized at location A.
--- NOTE | ~2021-03-25 | XR_ITS ---
XR foot LT min 3V DATE: 03/25/2021 15:24 INDICATION: Left ankle and plantar foot pain TECHNIQUE: 4 views COMPARISON: None FINDINGS: No fracture, dislocation, periosteal reaction or bone destruction. Joint spaces are preserv ed. Mild plantar calcaneal enthesopathy, without erosive change or periostitis. IMPRESSION: Mild plantar calcaneal enthesopathy Reviewed, dictated and finalized at location A.
== END 2021-03-25 15:02 | disposition home or self-care (01) ==
LOC: CHSIMG 15:03
PROVIDERS: PCP Internal Medicine; Visit Provider Internal Medicine
DX: M25.572 Pain in left ankle and joints of left foot (principal); M79.672 Pain in left foot
CPT/HCPCS: 73610; 73630

== ENCOUNTER 2021-04-03 08:26 | Outpatient (CLI) | payer BC, SELFPAY ==
--- NOTE | ~2021-04-03 | US_ITS ---
EXAMINATION: US right upper quadrant EXAM DATE: 04/03/2021 08:49 INDICATION: RUQ pain/ nausea. TECHNIQUE: Multiple grayscale and Doppler images of the abdomen right upper quadrant were obtained (b y a technologist who performed the scan) and subsequently reviewed. There is no prior study for stephani stauffer. FINDINGS: The pancreatic head and body are normal in appearance. The pancreatic tail is not visualized. Mildl y echogenic liver parenchyma, hepatic steatosis. There are no focal liver lesions identified. Ther e is no evidence of intrahepatic biliary duct dilation. Portal venous flow was seen in the hepatoped al, normal direction and has normal Doppler waveform. No right-sided hydronephrosis. Common bile duct measures 2 mm, which is normal. The gallbladder wall is normal in thickness, with ex pected amount of distention. No sonographic evidence of pericholecystic fluid. There is no cholelit hiases. Technologist performing exam reports patient did not demonstrate sonographic Chavis's sign. Please note that this sign is less reliable in patients who have received pain medication. IMPRESSION: 1. Mild hepatic steatosis. 2. Unremarkable gallbladder. Reviewed, dictated and finalized at location B.
== END 2021-04-03 08:27 | disposition home or self-care (01) ==
LOC: CHSIMG 08:27
PROVIDERS: PCP Internal Medicine; Visit Provider Internal Medicine
DX: R10.11 Right upper quadrant pain (principal); R11.0 Nausea
CPT/HCPCS: 76705

== ENCOUNTER 2021-04-17 17:30 | Emergency (ER) | payer BC, SELFPAY ==
[2021-04-17 17:53] VITALS: BP 124/77; PULSE 120; RESP 20; TEMP 36.7; O2SAT 95
[2021-04-17] MEDS: LACTATED RINGERS 1,000 ML 999 ML IV CONT (18:19)
[2021-04-17] MEDS: ONDANSETRON INJ 4 MG/2 ML VIAL IV PUSH (18:20)
[2021-04-17 19:09] LABS: Appearance Urine Sl Cloudy (Clear); Bilirubin Urine 1+ (Negative); Color Urine Light Yellow (Yellow); Glucose Urine UA Negative (Negative); Ketones Urine 1+ (Negative); Leukocyte Esterase Ur 3+ LEU/UL (Negative); Nitrate Urine Negative (Negative); Protein Urine 1+ (Negative); Urobilinogen Urine 0.2 mg/dL (0.2-1.0)
[2021-04-17 19:14] LABS: Add Urine Microscopic? YES; Bacteria Urine 2+ /hpf; Blood Urine Trace-lysed (Negative); Mucus Urine Few /lpf; RBC Urine 0-2 /hpf (0-2); Squamous Epithelial Cell Urine None seen /hpf (Few); WBC Urine 51-75 /hpf (0-3)
[2021-04-17 19:27] LABS: Basophils Absolute Auto 0.07 K/mm3 (0.00-0.10); Basophils Percent Auto 0.8 % (0.0-1.0); Eosinophils Absolute Auto 0.09 K/mm3 (0.02-0.50); Hematocrit 43.6 % (35.0-49.0); Hemoglobin 14.6 g/dL (12.0-15.0); Immature Granulocyte Absolute 0.03 K/mm3 (0.00-0.00); Immature Granulocyte Percent A 0.3 % (0.0-0.0); Lymphocytes Absolute Auto 2.32 K/mm3 (1.10-4.50); Lymphocytes Percent Auto 25.6 % (18.0-42.0); Mean Corpuscular HGB Conc 33.5 g/dL (32.0-36.0); Mean Corpuscular Hemoglobin 31.9 pg (27.0-31.0); Mean Corpuscular Volume 95.2 fL (78.0-102.0); Mean Platelet Volume 9.4 fl (9.2-11.8); Monocytes Absolute Auto 0.62 K/mm3 (0.10-0.90); Monocytes Percent Auto 6.8 % (2.0-11.0); Neutrophils Percent Auto 65.5 % (50.0-70.0); Platelet Count Result 246 K/mm3 (150-420); Red Blood Count 4.58 M/mm3 (4.20-5.40); Red Cell Distribution Width 13.1 % (11.6-14.4); White Blood Count 9.1 K/mm3 (4.8-10.8)
[2021-04-17 19:43] LABS: Alanine Aminotransferase 31 U/L (14-59); Albumin Level 3.5 g/dL (3.4-5.0); Alkaline Phosphatase 113 U/L (46-116); Anion Gap 11 mmol/L (8-16); Aspartate Amino Transferase 23 U/L (15-37); Bilirubin,Total 0.4 mg/dL (0.00-1.00); Blood Urea Nitrogen 12 mg/dL (7-18); Calcium 9.8 mg/dL (8.5-10.1); Carbon Dioxide 29 mmol/L (21-32); Chloride 103 mmol/L (98-108); Estimated CRCL calculation 79 ml/min; Estimated Glomerular Filt Rate > 60; Glucose 99 mg/dL (70-99); Osmolality Calculated 295 mOsm/kg (285-295); Potassium 3.6 mmol/L (3.5-5.1); Sodium 143 mmol/L (136-145)
[2021-04-17] MEDS: PROCHLORPERAZINE EDISYLATE 10 MG/2 ML VIAL 5 MG IV PUSH (19:43)
[2021-04-17] MEDS: LACTATED RINGERS 1,000 ML 500 ML IV CONT (19:43)
[2021-04-17 19:46] LABS: Lactic Acid Reflex 1.5 mmol/L (0.4-2.0)
--- NOTE | 2021-04-17 20:54 | ED.NAVMDI ---
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 This was done on Wednesday. She says she has had nausea, and not felt well since this was done. She has had recurrent nausea and emesis today, not feeling well enough to keep food down. No abdominal pain, of significance. nothinghas helped the nausea much at home except zofran helped a little. Duration of nausea, which has been moderately severe, has been since Wednesday pm. There has been no associated cause of nousea known to her. No other associated signs or symptoms. MD elicited complaint: nausea and vomiting Pertinent past history: anorexia Onset (ago): day(s) Description of vomiting: food contents and watery Associated abdominal pain: No Exacerbating factors: eating Associated symptoms: denies other symptoms Related Data Home Medications Medication Instructions Recorded Confirmed anastrozole [Arimidex] 1 mg PO DAILY 11/15/19 04/17/21 atorvastatin 20 mg PO DAILY 11/15/19 04/17/21 pantoprazole 40 mg PO DAILY 11/15/19 04/17/21 apixaban 2.5 mg tablet 5 mg PO BID 05/23/20 04/17/21 ergocalciferol (vitamin D2) 50,000 unit PO WEEKLY 04/17/21 04/17/21 prednisone 5 mg PO DAILY 04/17/21 04/17/21 Allergies Allergy/AdvReac Type Severity Reaction Status Date / Time adhesive tape AdvReac Mild BLISTERS Verified 04/17/21 17:58 WHEN APPLIED TO CHEST AREA. Review of Systems Constitutional: Constitutional: Reports no additional constitutional complaints Eyes: Eyes: Reports no additional eye complaints ENT: Reports system reviewed and no additional complaints, except as documented Cardiovascular: Cardiovascular: Reports no additional cardiovascular complaints Respiratory: Respiratory: Reports no additional respiratory complaints Gastrointestinal: Gastrointestinal: Reports no additional gastrointestinal complaints Genitourinary: Genitourinary: Reports no additional female genitourinary complaints Musculoskeletal: Musculoskeletal: Reports no additional musculoskeletal complaints Integumentary/Breasts: Skin/Breast: Reports system reviewed and no additional complaints, except as docu Neurologic: Reports system reviewed and no additional complaints, except as documented Psychiatric: Psychiatric: Reports no additional psychiatric complaints Endocrine: Endocrine: Reports no additional endocrine complaints Hematologic/Lymphatic: Hematologic/Lymphatic: Reports no additional hematologic/lymphatic complaints Allergic/Immunologic: Allergic/Immunologic: Reports no additional allergic/immunologic complaints [facility] Past Medical History Medical History Arthritis of left knee Barretts esophagus Dyslipidemia GERD (gastroesophageal reflux disease) History of breast cancer 2017. Left-sided breast cancer. Had a double mastectomy, chemotherapy and radiation therapy. History of cardiac disorder Sees a web content director in [place] for hyperlipidemia History of pulmonary embolism November 2019, takes Eliquis Surgical History Surgical History H/O bilateral mastectomy History of esophagogastroduodenoscopy (EGD) History of hysterectomy History of repair of hiatal hernia Presence of right artificial knee joint (06/14/19) Family History Family History Father Cerebrovascular accident of stroke at age 67 Heart disease atrial fibrillation Mother Alive and well Other Diabetes mellitus Family history of malignant neoplasm Social History Social History (Reviewed 04/18/21 @ 03:34 by Clyde Sandoval MD
[2021-04-17 21:31] VITALS: BP 119/75; PULSE 95; RESP 20; TEMP 36.7; O2SAT 97
== END 2021-04-17 21:33 | disposition home or self-care (01) ==
PROVIDERS: Emergency Provider Emergency Medicine; PCP Internal Medicine
DX: N12 Tubulo-interstitial nephritis, not specified as acute or chronic (principal)
CPT/HCPCS: 36415; 80053; 81001; 83605; 85025; 87086; 87088; 96361; 96365; 96375; 99283; 99284; J0696; J0780; J2405; J7120

== ENCOUNTER 2022-01-18 07:29 | Emergency (ER) | payer BC, SELFPAY ==
[2022-01-18 07:40] VITALS: BP 110/76; PULSE 111; RESP 16; TEMP 37.2; O2SAT 95
[2022-01-18] MEDS: KETOROLAC (*BKC) 60 MG/2 ML VIAL IM (09:02)
[2022-01-18] MEDS: cefTRIAXone 1 GM VIAL IM (09:03)
[2022-01-18] MEDS: ACETAMINOPHEN 325 MG TABLET 650 MG PO (09:03)
[2022-01-18] MEDS: guaiFENesin 12 HR 600 MG TABCR (09:03)
[2022-01-18 09:22] LABS: Influenza A QL RT-PCR Negative (Negative); Influenza B QL RT-PCR Negative (Negative)
--- NOTE | 2022-01-18 10:22 | ED.URI ---
HPI - URI/Sore Throat General Chief Complaint: Upper Respiratory Infection Stated Complaint: sore throat Time Seen by Provider: 01/18/22 07:31 Source: patient and RN notes reviewed Mode of arrival: ambulatory Limitations: no limitations History of Present Illness MD elicited complaint: sore throat and nasal congestion Onset (ago): day(s) (2) Consistency: constant Severity: mild Pain scale (0-10): 6 Able to tolerate fluids by mouth: Yes Exacerbating factors: swallowing Relieving factors: NSAID Associated symptoms: nasal congestion and sore throat Related Data Home Medications Medication Instructions Recorded Confirmed anastrozole [Arimidex] 1 mg PO DAILY 11/15/19 04/17/21 atorvastatin 20 mg PO DAILY 11/15/19 04/17/21 pantoprazole 40 mg PO DAILY 11/15/19 04/17/21 apixaban 2.5 mg tablet 5 mg PO BID 05/23/20 04/17/21 ergocalciferol (vitamin D2) 50,000 unit PO WEEKLY 04/17/21 04/17/21 prednisone 5 mg PO DAILY 04/17/21 04/17/21 Allergies Allergy/AdvReac Type Severity Reaction Status Date / Time adhesive tape AdvReac Mild BLISTERS Verified 01/18/22 08:29 WHEN APPLIED TO CHEST AREA. Review of Systems Review of Systems: All systems reviewed & are unremarkable except as noted in HPI and below PMFSH Past Medical History Medical History Arthritis of left knee Barretts esophagus Dyslipidemia GERD (gastroesophageal reflux disease) History of breast cancer 2017. Left-sided breast cancer. Had a double mastectomy, chemotherapy and radiation therapy. History of cardiac disorder Sees a technician semiconductor development in [place] for hyperlipidemia History of pulmonary embolism November 2019, takes Eliquis Pharyngitis Sciatica Surgical History Surgical History H/O bilateral mastectomy History of esophagogastroduodenoscopy (EGD) History of hysterectomy History of repair of hiatal hernia Presence of right artificial knee joint (06/14/19) Family History Family History Father Cerebrovascular accident of stroke at age 67 Heart disease atrial fibrillation Mother Alive and well Other Diabetes mellitus Family history of malignant neoplasm Social History Social History Social History: single: 2 grown children. 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 Smoking status: Never smoker Alcohol intake: never Alcohol use details: STATES VERY RARELY Substance use: never Gender identity (if verbalized by the patient): Female Spiritual care concerns: No Exam Const: General: no acute distress and alert Orientation/consciousness: patient oriented x3 Limitations: no limitations HENMT: Ears: external ears normal, TM's normal bilaterally and EAC's normal General nose exam: Normal external nose present and Normal nares present Face and sinus: normal facial exam and sinuses nontender Mouth: Yes moist mucous membranes Other: red, exudative minimally swollen left tonsil. no acute stridor. Eyes: Conjunctivae: conjunctivae normal Pupils: Equal, round and reactive pupils present EOM: EOMs intact bilaterally Neck: Neck: normal visual inspection and no lymphadenopathy Chest: Chest palpation & inspection: normal inspection of the chest Resp: Effort & Inspection: normal respiratory effort Auscultation: clear to auscultation bilaterally Cardio: Rate: regular rate Rhythm: regular rhythm GI: GI Palp: Yes Soft to palpation and No Tenderness to palpation present (GI) Auscultation: normal bowel sounds : General: Yes bladder normal to palpation and Yes no CVA tenderness Back/Spine/Pelvis: Back: no CVA tenderness Skin: General skin exam: normal color Rashes: no rashes Neuro: General: patient oriented x3, moves all extremities, no meningeal signs, no focal motor deficits and
[2022-01-18 10:37] VITALS: BP 112/64; PULSE 104; RESP 16; TEMP 37.1; O2SAT 94
== END 2022-01-18 10:42 | disposition home or self-care (01) ==
PROVIDERS: Emergency Provider Emergency Medicine; PCP Internal Medicine
DX: J02.0 Streptococcal pharyngitis (principal)
CPT/HCPCS: 87502; 87880; 96372; 99284; A9270; J0696; J1885

== ENCOUNTER 2022-02-02 21:34 | Emergency (ER) | payer BC, SELFPAY ==
[2022-02-02 21:40] VITALS: BP 140/76; PULSE 94; RESP 16; TEMP 36.7; O2SAT 100
--- NOTE | 2022-02-02 21:52 | ED.GENADULT ---
HPI - General Adult General Chief complaint: Neck Pain/Injury Stated complaint: pain in neck Time Seen by Provider: 02/02/22 21:52 History of Present Illness HPI narrative: 51-year-old female patient status post hiatal hernia repair surgery a week ago is here with concerns about having felt a little lump in her throat since yesterday. Patient states that she was taking her mashed potatoes and gravy she felt that it got stuck. She tried to drink some tea to help it get down but then she felt like she had to throw it up and she did vomit without trying to induce any vomiting. Since then she has been able to drink liquids without difficulty. She states that she wanted to make sure that there was not a blood clot there since the patient is currently on Eliquis for PE and has been on that even prior to her surgery. She does not have any difficulty breathing. She does not have any difficulty swallowing her saliva or speaking. Patient also expresses a concern about a bruise at the IV site of her right hand which apparently was a small swollen area and has no diffuse over the entire hand and changed colors. She does not complain of any pain to the hand. Patient denies any chest pain or difficulty breathing. She denies any abdominal pain. She does state that she is very hungry however she manages to take protein drinks and is going to advanced to soft food in a week. Patient states that postsurgical Paz is doing very well and her recovery has been fine. Related Data Home Medications Medication Instructions Recorded Confirmed anastrozole [Arimidex] 1 mg PO DAILY 11/15/19 04/17/21 atorvastatin 20 mg PO DAILY 11/15/19 04/17/21 pantoprazole 40 mg PO DAILY 11/15/19 04/17/21 apixaban 2.5 mg tablet 5 mg PO BID 05/23/20 04/17/21 ergocalciferol (vitamin D2) 50,000 unit PO WEEKLY 04/17/21 04/17/21 Allergies Allergy/AdvReac Type Severity Reaction Status Date / Time adhesive tape AdvReac Mild BLISTERS Verified 02/02/22 21:47 WHEN APPLIED TO CHEST AREA. Review of Systems Review of Systems: All systems reviewed & are unremarkable except as noted in HPI and below PMFSH Past Medical History Medical History Arthritis of left knee Barretts esophagus Dyslipidemia GERD (gastroesophageal reflux disease) History of breast cancer 2017. Left-sided breast cancer. Had a double mastectomy, chemotherapy and radiation therapy. History of cardiac disorder Sees a customer care team coach in [place] for hyperlipidemia History of pulmonary embolism November 2019, takes Eliquis Pharyngitis Sciatica Surgical History Surgical History H/O bilateral mastectomy History of esophagogastroduodenoscopy (EGD) History of hysterectomy History of repair of hiatal hernia Presence of right artificial knee joint (06/14/19) Family History Family History Father Cerebrovascular accident of stroke at age 67 Heart disease atrial fibrillation Mother Alive and well Other Diabetes mellitus Family history of malignant neoplasm Social History Social History Social History: single: 2 grown children. 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 Smoking status: Never smoker Alcohol intake: never Alcohol use details: STATES VERY RARELY Substance use: never Gender identity (if verbalized by the patient): Female Spiritual care concerns: No Exam Narrative: Alert female in no acute distress. Stable vital signs. HEENT: normocephalic. No facial abnormalities.. EOMs are intact, pupils are equal and reactive bilaterally. Oral mucous membranes are moist. Tongue motion is nontender and normal. Posterior pharyngeal wall is clear. Neck is supple. There is no asymmetry or palpable lumps. Carotid pulses are felt bilatera
== END 2022-02-02 22:15 | disposition home or self-care (01) ==
PROVIDERS: Emergency Provider Emergency Medicine; PCP Internal Medicine
DX: Z04.89 Encounter for examination and observation for other specified reasons (principal)
CPT/HCPCS: 99281

== ENCOUNTER 2022-02-05 11:46 | Outpatient (CLI) | payer BC, SELFPAY ==
--- NOTE | ~2022-02-05 | XR_ITS ---
XR chest 2V 02/05/2022 12:24 Indication: Syncope. Nausea. Procedure: PA and lateral views of the chest Comparison: 11/22/2019 Findings: No focal air space disease, pulmonary edema, pleural effusion or suspected pneumothorax. Th ere is bibasilar atelectasis. Heart size normal. There are surgical changes overlying the left upper thorax. Impression: 1: Bibasilar atelectasis. Reviewed, dictated and finalized at location B. Impression: 1: Bibasilar atelectasis.
[2022-02-05 12:11] LABS: Basophils Absolute Auto 0.06 K/mm3 (0.00-0.10); Basophils Percent Auto 0.7 % (0.0-1.0); Eosinophils Absolute Auto 0.02 K/mm3 (0.02-0.50); Eosinophils Percent Auto 0.2 % (1.0-6.0); Hematocrit 35.3 % (35.0-49.0); Hemoglobin 11.9 g/dL (12.0-15.0); Immature Granulocyte Absolute 0.05 K/mm3 (0.00-0.00); Immature Granulocyte Percent A 0.5 % (0.0-0.0); Lymphocytes Absolute Auto 1.25 K/mm3 (1.10-4.50); Lymphocytes Percent Auto 13.7 % (18.0-42.0); Mean Corpuscular HGB Conc 33.7 g/dL (32.0-36.0); Mean Corpuscular Volume 94.9 fL (78.0-102.0); Mean Platelet Volume 9.7 fl (9.2-11.8); Monocytes Percent Auto 4.4 % (2.0-11.0); Neutrophils Absolute Auto 7.3 K/mm3 (1.7-7.2); Neutrophils Percent Auto 80.5 % (50.0-70.0); Platelet Count Result 300 K/mm3 (150-420); Red Blood Count 3.72 M/mm3 (4.20-5.40); Red Cell Distribution Width 12.9 % (11.6-14.4); White Blood Count 9.1 K/mm3 (4.8-10.8)
[2022-02-05 20:53] LABS: Alanine Aminotransferase 26 U/L (6-35); Albumin Level 3.8 g/dL (3.5-5.1); Alkaline Phosphatase 109 U/L (38-126); Amylase 51 U/L (30-110); Anion Gap 8 mmol/L (8-16); Aspartate Amino Transferase 38 U/L (14-36); Bilirubin,Total 0.1 mg/dL (0.2-1.3); Blood Urea Nitrogen 12 mg/dL (7-17); Calcium 9.1 mg/dL (8.4-10.2); Carbon Dioxide 28 mmol/L (22-30); Chloride 103 mmol/L (98-107); Estimated Glomerular Filt Rate > 60; Glucose 115 mg/dL (65-110); Lipase 45 U/L (23-300); Osmolality Calculated 288 mOsm/kg (285-295); Potassium 3.7 mmol/L (3.4-5.0); Sodium 139 mmol/L (137-145)
== END 2022-02-05 11:47 | disposition home or self-care (01) ==
LOC: CHSLAB 11:49
PROVIDERS: PCP Internal Medicine; Visit Provider Internal Medicine
DX: R55 Syncope and collapse (principal); R11.0 Nausea; R07.89 Other chest pain
CPT/HCPCS: 36415; 71046; 80053; 82150; 83690; 85025

== ENCOUNTER 2022-04-18 07:32 | Outpatient (CLI) | payer BC, SELFPAY ==
[2022-04-18 07:58] LABS: Add Urine Microscopic? NO; Appearance Urine Clear (Clear); Basophils Absolute Auto 0.05 K/mm3 (0.00-0.10); Basophils Percent Auto 0.9 % (0.0-1.0); Bilirubin Urine Negative (Negative); Blood Urine Negative (Negative); Color Urine Light Yellow (Yellow); Eosinophils Absolute Auto 0.16 K/mm3 (0.02-0.50); Eosinophils Percent Auto 2.9 % (1.0-6.0); Glucose Urine UA Negative (Negative); Hematocrit 38.5 % (35.0-49.0); Immature Granulocyte Absolute 0.02 K/mm3 (0.00-0.00); Immature Granulocyte Percent A 0.4 % (0.0-0.0); Ketones Urine Negative (Negative); Leukocyte Esterase Ur Negative LEU/UL (Negative); Lymphocytes Absolute Auto 2.25 K/mm3 (1.10-4.50); Lymphocytes Percent Auto 40.8 % (18.0-42.0); Mean Corpuscular HGB Conc 33.8 g/dL (32.0-36.0); Mean Corpuscular Hemoglobin 31.8 pg (27.0-31.0); Mean Corpuscular Volume 94.1 fL (78.0-102.0); Mean Platelet Volume 9.9 fl (9.2-11.8); Monocytes Absolute Auto 0.39 K/mm3 (0.10-0.90); Monocytes Percent Auto 7.1 % (2.0-11.0); Neutrophils Absolute Auto 2.6 K/mm3 (1.7-7.2); Neutrophils Percent Auto 47.9 % (50.0-70.0); Nitrate Urine Negative (Negative); Platelet Count Result 215 K/mm3 (150-420); Protein Urine Negative (Negative); Red Blood Count 4.09 M/mm3 (4.20-5.40); Red Cell Distribution Width 13.7 % (11.6-14.4); Specific Grav Ur >= 1.030 (1.010-1.020); Urobilinogen Urine 0.2 mg/dL (0.2-1.0); White Blood Count 5.5 K/mm3 (4.8-10.8)
[2022-04-18 08:43] LABS: Alanine Aminotransferase 32 U/L (14-59); Albumin Level 3.3 g/dL (3.4-5.0); Alkaline Phosphatase 117 U/L (46-116); Anion Gap 8 mmol/L (8-16); Aspartate Amino Transferase 21 U/L (15-37); Bilirubin,Total 0.3 mg/dL (0.00-1.00); Blood Urea Nitrogen 15 mg/dL (7-18); Calcium 8.9 mg/dL (8.5-10.1); Carbon Dioxide 30 mmol/L (21-32); Chloride 105 mmol/L (98-108); Cholesterol 145 mg/dL (0-200); Creatine Kinase 72 U/L (26-192); Estimated Glomerular Filt Rate > 60; Free T4 Free Thyroxine 1.08 ng/dL (0.76-1.46); Glucose 97 mg/dL (70-99); HDL Direct 44 mg/dL (40-60); LDL Cholesterol Calculated 80 mg/dL (<130); Osmolality Calculated 296 mOsm/kg (285-295); Potassium 3.9 mmol/L (3.5-5.1); Sodium 143 mmol/L (136-145); Thyroid Stimulating Hormone 2.92 uIU/mL (0.36-3.74); Total Protein 7.3 g/dL (6.4-8.2); Triglycerides 107 mg/dL (0-150); Vitamin B12 541 pg/mL (193-986)
== END 2022-04-18 07:33 | disposition home or self-care (01) ==
LOC: CHSLAB 07:33
PROVIDERS: PCP Internal Medicine; Visit Provider Internal Medicine
DX: Z00.00 Encounter for general adult medical examination without abnormal findings (principal); E53.8 Deficiency of other specified B group vitamins; E78.5 Hyperlipidemia, unspecified
CPT/HCPCS: 36415; 80053; 80061; 81003; 82550; 82607; 84439; 84443; 85025

== ENCOUNTER 2022-10-27 10:33 | Outpatient (CLI) | payer BC, SELFPAY ==
[2022-10-27 11:11] LABS: Basophils Absolute Auto 0.05 K/mm3 (0.00-0.10); Basophils Percent Auto 0.8 % (0.0-1.0); Eosinophils Percent Auto 1.5 % (1.0-6.0); Hematocrit 40.4 % (35.0-49.0); Hemoglobin 13.5 g/dL (12.0-15.0); Immature Granulocyte Absolute 0.02 K/mm3 (0.00-0.00); Immature Granulocyte Percent A 0.3 % (0.0-0.0); Lymphocytes Absolute Auto 1.92 K/mm3 (1.10-4.50); Lymphocytes Percent Auto 29.5 % (18.0-42.0); Mean Corpuscular HGB Conc 33.4 g/dL (32.0-36.0); Mean Corpuscular Hemoglobin 31.1 pg (27.0-31.0); Mean Corpuscular Volume 93.1 fL (78.0-102.0); Mean Platelet Volume 9.7 fl (9.2-11.8); Monocytes Absolute Auto 0.44 K/mm3 (0.10-0.90); Monocytes Percent Auto 6.8 % (2.0-11.0); Neutrophils Percent Auto 61.1 % (50.0-70.0); Platelet Count Result 182 K/mm3 (150-420); Red Blood Count 4.34 M/mm3 (4.20-5.40); Red Cell Distribution Width 12.6 % (11.6-14.4); White Blood Count 6.5 K/mm3 (4.8-10.8)
[2022-10-27 11:31] LABS: Anion Gap 6 mmol/L (8-16); Blood Urea Nitrogen 12 mg/dL (7-18); Carbon Dioxide 31 mmol/L (21-32); Chloride 104 mmol/L (98-108); Estimated Glomerular Filt Rate > 60; Glucose 95 mg/dL (70-99); Iron 79 ug/dL (50-170); Osmolality Calculated 291 mOsm/kg (285-295); Percent Iron Saturation 27 % (12-57); Potassium 3.9 mmol/L (3.5-5.1); Sodium 141 mmol/L (136-145)
== END 2022-10-27 10:34 | disposition home or self-care (01) ==
LOC: CHSLAB 10:36
PROVIDERS: PCP Internal Medicine
DX: C50.912 Malignant neoplasm of unspecified site of left female breast (principal)
CPT/HCPCS: 36415; 80048; 83540; 83550; 85025

== ENCOUNTER 2023-09-10 06:08 | Emergency (ER) | payer BC, SELFPAY ==
[2023-09-10 06:08] VITALS: BP 106/58; PULSE 81; RESP 18; TEMP 36.4; O2SAT 97
--- NOTE | 2023-09-10 06:25 | ED.WOUNDLAC ---
HPI - Wound/Laceration General Chief Complaint: Wound/Laceration Stated Complaint: finger laceration Time Seen by Provider: 09/10/23 06:24 Source: patient Mode of arrival: ambulatory Limitations: no limitations History of Present Illness HPI narrative: this is a 53-year-old female who presents with a flap laceration that occurred while starting to bake this morning on a tin can patient is on Eliquis for history of pulmonary embolism and initially could not get the laceration. Bleeding, currently it is not bleeding and dairy was evaluated, and will update patient with her tetanus. Onset (ago): hour(s) Extremity Location: Right: hand ( Fifth finger flap laceration) Place: home Patient tetanus UTD: No Context: accidental Associated symptoms: pain Related Data Home Medications Medication Instructions Recorded Confirmed anastrozole 1 mg tablet (Arimidex) 1 mg PO DAILY 11/15/19 09/10/23 apixaban 2.5 mg tablet (Eliquis) 5 mg PO BID 05/23/20 09/10/23 pantoprazole 40 mg tablet,delayed 40 mg PO QAM 05/28/23 09/10/23 release Allergies Allergy/AdvReac Type Severity Reaction Status Date / Time adhesive tape AdvReac Mild BLISTERS Verified 05/28/23 10:39 WHEN APPLIED TO CHEST AREA. Review of Systems Review of Systems: All systems reviewed & are unremarkable except as noted in HPI and below PMFSH Past Medical History Medical History Arthritis of left knee Barretts esophagus Dyslipidemia GERD (gastroesophageal reflux disease) History of breast cancer 2017. Left-sided breast cancer. Had a double mastectomy, chemotherapy and radiation therapy. History of cardiac disorder Sees a voip technician in [place] for hyperlipidemia History of pulmonary embolism November 2019, takes Eliquis Pharyngitis Sciatica Surgical History Surgical History H/O bilateral mastectomy History of esophagogastroduodenoscopy (EGD) History of hysterectomy History of repair of hiatal hernia Presence of right artificial knee joint (06/14/19) Family History Family History Father Cerebrovascular accident of stroke at age 67 Heart disease atrial fibrillation Mother Alive and well Other Diabetes mellitus Family history of malignant neoplasm Social History Social History Social History: single: 2 grown children. 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 Smoking status: Never smoker Alcohol intake: never Alcohol use details: STATES VERY RARELY Substance use: never Living arrangements: alone Gender identity (if verbalized by the patient): Female Spiritual care concerns: No Exam Const: General: healthy appearing Nutritional Appearance: well nourished Orientation/consciousness: patient oriented x3 Limitations: no limitations Resp: Effort & Inspection: normal respiratory effort Auscultation: clear to auscultation bilaterally Cardio: Rate: regular rate Rhythm: regular rhythm Extrem: Other: Flap laceration to the palmar surface of her right 5th finger approximately 2cm in length Course Course Emergency Course: area currently not bleeding and Dermabond was applied to flap laceration of the palm shortness her 5th right finger and tetanus vaccine was updated for this patient. Vital Signs Vital signs: Vital Signs Temperature 36.4 C L 09/10/23 06:08 Pulse Rate 81 09/10/23 06:08 Respiratory Rate 18 09/10/23 06:08 Blood Pressure 106/58 L 09/10/23 06:08 Pulse Oximetry 97 09/10/23 06:08 Oxygen Delivery Room Air 09/10/23 06:08 Temperature 36.4 C L 09/10/23 06:08 Pulse Rate 81 09/10/23 06:08 Respiratory Rate 18 09/10/23 06:08 Blood Pressure 106/58 L 09/10/23 06:08 Pulse Oximetry 97 09/10/23 06:08 Oxygen Delivery Room Air 09/10
[2023-09-10] MEDS: TETANUS,DIPHTHERIA,AC PERTUSSIS ADULT 0.5 ML (ADACEL) IM (06:30)
[2023-09-10 06:45] VITALS: BP 118/63; PULSE 71; RESP 18; O2SAT 99
== END 2023-09-10 06:50 | disposition home or self-care (01) ==
LOC: CHSED 06:32
PROVIDERS: Emergency Provider Emergency Medicine; PCP Internal Medicine
DX: S61.216A Laceration without foreign body of right little finger without damage to nail, initial encounter (principal); E78.5 Hyperlipidemia, unspecified; Z79.01 Long term (current) use of anticoagulants; Z85.3 Personal history of malignant neoplasm of breast; Z23 Encounter for immunization; Z86.711 Personal history of pulmonary embolism; W26.8XXA Contact with other sharp object(s), not elsewhere classified, initial encounter
CPT/HCPCS: 12001; 90471; 90715; 99282

== ENCOUNTER 2025-04-24 10:50 | Outpatient (CLI) | payer BC, SELFPAY ==
--- NOTE | 2025-04-24 | CY_PTH ---
PATIENT: Malena Lopez LOC: [facility] U#:[id number] AGE/SX: 54/F ROOM: RE04/24/[address]: Erna Francisco, RAMY : 1970 BED: DIS: 04/24/2025 SPEC #: [id number] RECD: 04/24/25 11:24 STATUS: SOURadha REQ #: [id number] LISSA: 04/24/25 00:[address]: NolanErna DEPT: [facility] Cytology RECD BY: Josefina Hensley MLT, (ASCP) ENTERED: 04/24/25 11:25 SP TYPE: Cytology OTHR DR: Sakina Gibson MD Tissues: A - Pap Smear Procedures: Pap Smear
--- OUTSIDE RECORDS SUMMARY | 2025-04-24 11:22 | XMS_ITS | Clinical Summary ---
Author Organization [facility] Address [address] [place] [address] Care Team Providers Care Projection Welding Machine Operator Name Role Phone Sakina Gibson MD Primary Care Provider [phone] Source Comments [facility],non-owned Affiliates and Associated Physician Practices is amultiple site organization consisting of ambulatory clinics and hospital sitesin [place], [place] and [place]. This disclosure is being madepursuant to the Care Everywhere program and may not contain all information available regarding this patient. Last updated 18.[facility] Allergies No known active allergies Medications * Be aware that medications may not be up to date on this document. Alwaysverify current medications with the patient. ibuprofen (MOTRIN) 800 MG tablet Take 1 tablet by mouth 3 times daily 90 tablet 2 02/21/2019 Active ibuprofen (MOTRIN) 800 MG tablet Take 1 tablet by mouth every 8 hours as needed for Pain 90 tablet 2 02/22/2019 Active Active Problems Problem Noted Date Diagnosed Date Primary osteoarthritis of right knee 02/17/2019 Social History Tobacco Use Types Packs/Day Years Used Date Smoking Tobacco: Never Smokeless Tobacco: Never Comments Unknown Sex and Gender Information Value Date Recorded Sex Assigned at Not on file Legal Sex Female 4:03 PM CDT Gender Identity Not on file Sexual Orientation Not on file Last Filed Vital Signs Vital Sign Reading Time Taken Comments Blood Pressure 108/66 02/17/2019 1:33 PM CDT Pulse 104 02/17/2019 1:33 PM CDT Temperature 36.8 C (98.3 F) 02/17/2019 1:33 PM CDT Respiratory Rate - - Oxygen Saturation - - Inhaled Oxygen Concentration - - Weight 102.1 kg (225 lb) 02/17/2019 1:33 PM CDT Height 172.7 cm (5' 8) 02/17/2019 1:33 PM CDT Body Mass Index 34.21 02/17/2019 1:33 PM CDT Plan of Treatment Health Maintenance Due Date Last Done Comments COLOGUARD (AGES 45-75) - COL ON CA SCREENING 1972 COLON MONITORING 1972 COLONOSCOPY - COLON CA SCREENING 1972 CT COLONOGRAPHY - COLON CA SCREENING 1972 Colorectal Cancer Screening 1972 FIT - COLON CA SCREENING 1972 FLEX SIG - COLON CA SCREENING 1972 LIPID TESTING 1972 MAMMOGRAM 1972 HIV SCREENING 1987 HEPATITIS C SCREENING 05/14/1990 DTAP/TDAP/TD VACCINES (1 - Tdap) 1991 HEPATITIS B VACCINE (1 of 3 - 19+ 3-dose series) 1991 SCREENING FOR DIABETES 02/17/2019 PNEUMOCOCCAL VACCINE 50+ (1 of 1 - PCV) 2022 ZOSTER VACCINE (1 of 2) 2022 COVID-19 VACCINE (1 - 2023-2 5 season) 2024 DEPRESSION SCREENING 09/20/2024 INFLUENZA VACCINE (#1) 2025 HIB VACCINE Aged Out No longer eligi ble based on patient's age to complete this topic HPV VACCINE Aged Out No longer eligi ble based on patient's age to complete this topic MENINGOCOCCAL (Group B) VACC INE SHARED DECISION-MAKING Aged Out No longer eligibl e based on patient's age to complete this topic MENINGOCOCCAL GROUPS A/C/Y/W VACCINE Aged Out No longer eligible b ased on patient's age to complete this topic Insurance AETNA AETNA Care Teams Projection Welding Machine Operator Relationship Specialty Start Date End Date Sakina Gibson MD PCP - General 02/02/19
--- OUTSIDE RECORDS SUMMARY | 2025-04-24 11:22 | XMS_ITS | Clinical Summary ---
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 Gender Identity Not on file Sexual Orientation Not on file Last Filed Vital Signs Vital Sign Reading Time Taken Comments Blood Pressure 100/68 01/19/2012 8:53 AM CDT Pulse 92 01/19/2012 8:53 AM CDT Temperature - - Respiratory Rate - - Oxygen Saturation - - Inhaled Oxygen Concentration - - Weight 83.9 kg (185 lb) 01/19/2012 8:53 AM CDT Height 172.7 cm (5' 8) 01/19/2012 8:53 AM CDT Body Mass Index 28.13 01/19/2012 8:53 AM CDT Plan of Treatment Health Maintenance Due Date Last Done Comments Cervical Cancer Screening Pa p Smear (Age 30 to 64) Every 3 Years 1972 Colorectal Cancer Screening Colonoscopy (10 Years) 1972 Annual Physical 1975 Hepatitis C 1990 Hepatitis B Vaccines (1 of 3 - 19+ 3-dose series) 1991 Cervical Cancer Screening Pa p with HPV Testing (Age 30 to 64) Every 5 Years 2002 Cervical Cancer Screening with HPV 2002 Mammogram Screening 2012 DTaP, Tdap and Td Vaccines ( 2 - Td or Tdap) 01/18/2022 01/19/2012 Pneumococcal Vaccine: 50+ Ye ars (1 of 1 - PCV) 2022 Zoster Vaccines (1 of 2) 2022 COVID-19 Vaccine (2023-2 5 season) 2024 Meningococcal B Vaccine Aged Out No l onger eligible based on patient's age to complete this topic Meningococcal Vaccine Aged Out No patrick ugo eligible based on patient's age to complete this topic RSV Immunizations Under 20 Months Aged Out No longer eligible based on patient's age to complete this topic Insurance [facility] Care Teams Content Strategist Relationship Specialty Start Date End Date Sakina Gibson MD [address] [place] [address] PCP - General INTERNAL MEDICINE 04/30/20
--- OUTSIDE RECORDS SUMMARY | 2025-04-24 11:23 | XMS_ITS ---
Author Organization [facility] [place] [address] Address [address] [place] [address] Care Team Providers Care Vocational Evaluator Name Role Phone Sakina Gibson MD Primary Care Provider [phone] Nancy Martinez MD Unavailable [phone] Katie Khalil MD Unavailable [phone] Active Problems Problem Noted Date Diagnosed Date Malignant neoplasm of breast in female, estrogen receptor positive 04/19/2025 Weight loss 03/26/2025 Diarrhea 01/16/2025 Rodriguez's esophagus without dysplasia 09/22/2024 Hiatal hernia 01/26/2022 Pulmonary embolism 03/20/2021 Current use of termination clerk anticoagulation 021 Gastroesophageal reflux disease without esophagi tis 03/20/2021 Primary osteoarthritis of right knee 02/17/2019 Current Treatment and Therapy Plans No current plan information found. Past Treatment and Therapy Plans No past plan information found. Lifetime Dose Tracking * Chemical Lifetime Dose Automatic Entry Manual Entr y Fluoro Time 1.39 minutes 1.39 minutes 0 minutes DLP 914 mGycm 914 mGycm 0 mGycm Resolved Problems Problem Noted Date Diagnosed Date Resolved Date Rodriguez's esophagus with dys plasia, unspecified 03/20/2021 03/26/2025
--- OUTSIDE RECORDS SUMMARY | 2025-04-24 11:23 | XMS_ITS | Patient Health Record ---
Author Organization [facility] Address [address] [place], [place] [id number] Care Team Providers Care Die Repair Machinist Name Role Phone KAMRON ALSTON Unavailable [phone] Sakina Gibson Unavailable Unavailable Reason For Referral No Information Plan Of Treatment No Information Insurance Providers Payer Name Payer Address Payer Phone Subscriber Number Group Number Insured Name Patient Relationship to Insured Coverage Start Date Coverage End Date [employer] [address] [place] [phone] [id number] AZUL DAVIDSON Self - patient is the insured
--- OUTSIDE RECORDS SUMMARY | 2025-04-24 11:23 | XMS_ITS | Referral Summary ---
Author Organization [facility] [address] [place] [address] Care Team Providers Care Urban Planning Teacher Name Role Phone Sakina Gibson MD Primary Care Provider + [phone] Nancy Martinez MD Unavailable [phone] Katie Khalil MD Unavailable + [phone] Encounters Date Type Department Care Team Description 04/10/2025 Telephone [facility] Gastroenterology [address] [place] [address] Medical Office Building [address], [address] [place] [address] Agatha Mclain, DAVI Prior Auth (Xifaxan 550MG tablets) 04/09/2025 Results Follow-Up [facility] Gastroenterology [address] [place] [address] Medical Office Building [address], [address] [place] [address] Agatha Mclain, DAVI CT Abd/Pelvis with contrast 04/09/2025 Telephone [facility] Oncology [address] [facility] Floor 8 [place] [address] Jodie Jurado 04/09/2025 Telephone [facility] [address] [place] [address] Kandace Dominique RN 04/09/2025 Orders Only [facility] Gastroenterology [address] [place] [address] Medical Office Building [address], [address] [place] [address] Rosie Hughes NP 04/06/2025 11:47 AM CDT - 04/06/2025 11:59 PM CDT Hospital Encounter [facility] [address] [place] [address] Diarrhea, unspecified type Discharge Disposition: Discharge to home or self care 04/02/2025 Telephone [facility] Oncology [address] [facility] Floor 8 [place] [address] Jodie Jurado 04/02/[address] [address] Kajal Horner RN Appointment/Vira enedelia 03/26/2025 Telephone [facility] Gastroenterology [address] [place] [address] 12th [place] [address] [place] [address] Xiomy Abernathy 03/21/[address] [address] Kandace Dominique RN 03/21/2025 9:00 AM CDT Office Visit [facility] Gastroenterology [address] [place] [address] 12th [place] [address] [place] [address] Rosie Hughes NP Diarrhea, unspecified type (Primary Dx); Weight loss; Gastroesophageal reflux disease without esophagitis; Rodriguez's esophagus without dysplasia 02/13/2025 Telephone [facility] Gastroenterology [address] [facility] Medical Office Building [address], [address] [place] [address] Agatha Mclain RN Procedure Results 02/06/2025 Results Follow-Up [facility] Gastroenterology [address] [facility] 2nd Floor [address] [place] [address] Tay Solis MD Surgical pathology 02/01/2025 8:00 AM CDT - 02/01/2025 8:30 AM CDT Surgery [facility] [address] [place] [address] Tay Solis MD COLON BIOPSY 02/01/2025 7:57 AM CDT Anesthesia Event [facility] GI Center [facility] [place] [address] Rosenda Palacios MD Winfrey, Tonya M., LUSTERER 02/01/2025 6:53 AM CDT - 02/01/2025 8:55 AM CDT Hospital Encounter [facility] GI Center [facility] [place] [address] Tay Solis MD Diarrhea, unspecified type Discharge Disposition: Discharge to home or self care 01/25/2025 Results Follow-Up [facility] Gastroenterology [address] [facility] 2nd Floor [address] [place] [address] Tay Solis MD Surgical pathology 01/24/2025 Telephone [facility] Gastroenterology [address] [facility] Medical Office Building [address], [address] [place] [address] Loyda Bhatt RN Procedure Results from Last 3 Months Allergies Active Allergy Reactions Criticality Noted Date Comments Adhesive Rash Medium 02/14/2021 Allergy reaction only when adhesive is used on the chest. Medications anastrozole (ARIMIDEX) 1 mg tabletIndicatio ns:prevention of breast cancer in high risk women Take 1 tablet (1 mg total) by mouth every morning 1 Active cholecalciferol (VITAMIN D-3) 400 unit capsuleIndicati ons:supplement Take 1 tablet/capsule (400 Units total) by mouth every morning Restart in 2 weeks after surgery 2 Active cyanocobalamin, vitamin B-12, (Vitamin B-12) 2,500 mcg tabletIndicatio ns:Prevention of Vitamin B12 Deficiency Take 1 tablet (2,500 mcg total) by mouth every morning Crush medications for 2 weeks after surgery 2 Active metoclopramide (REGLAN) 5 mg tabletIndicatio ns:gastroesopha geal reflux disease Take 1 tablet (5 mg total) by mouth daily after lunch Crush medications for 2 weeks after surgery 2 Active Additional Information Patient not taking.Informant: Self, Reported on 03/21/2025 mirtazapine (REMERON) 7.5 mg tabletIndicatio ns:sleep aid Take 1 tablet (7.5 mg total) by mouth as needed (sleep) Crush medications for 2 weeks after surgery 2 Active multivitamin-Ca -iron-minerals tabletIndicatio ns:Vitamin Deficiency Prevention Take 1 tablet by mouth every morning Crush medications for 2 weeks after surgery 2 Active Eliquis 5 mg tabletIndicatio ns:Venous Thrombosis,PE Take 2 tablets (10 mg total) by mouth every morning Crush medications for 2 weeks after surgery 2 Active Additional Information Patient not taking.Reported on 03/21/2025 acetaminophen (TYLENOL) 32 mg/mLIndication s:Pain Take 31.2 mL (1,000 mg total) by mouth every 6 (six) hours as needed for pain 473 mL 2 Active promethazine (PHENERGAN) 25 mg suppository Insert 1 suppository (25 mg total) into the rectum every 6 (six) hours as needed for nausea or vomiting 12 each 2 2 Active Additional Information Patient not taking.Informant: Self, Reported on 03/21/2025 ondansetron (ZOFRAN) 4 mg tablet TAKE 1 TABLET BY MOUTH EVERY 6 HOURS NEEDED FOR NAUSEA OR VOMITING 60 tablet 3 4 Active omeprazole (PriLOSEC) 40 mg capsuleIndicati ons:Esophagitis Take 1 capsule (40 mg total) by mouth 2 (two) times a day 180 capsule 2 5 Active phentermine (ADIPEX-P) 37.5 mg tablet 0 5 Active topiramate (TOPAMAX) 50 mg tablet Active valACYclovir (VALTREX) 500 mg tablet Active rifAXIMin (Xifaxan) 550 mg tabletIndicatio ns:Diarrhea Predominant Irritable Bowel Syndrome Take 1 tablet (550 mg total) by mouth 3 (three) times a day for 14 days 42 tablet 5 04/23/20 25 Active Problems Problem Noted Date Diagnosed Date Malignant neoplasm of breast in female, estrogen receptor positive 04/19/2025 Weight loss 03/26/2025 Diarrhea 01/16/2025 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 Never 01/26/2025 Q2: How many drinks containi ng alcohol do you have on a typical day when you are drinking? Patient does not drink Q3: How often do you have si x or more drinks on one occasion? Never 01/26/2025 Personal Safety Answer Date Recorded Have you ever been in or are you currently in a harmful physical or emotional relationship or is someone making you feel afraid or unsafe? Denies 02/01/2025 Comments No Sex and Gender Information Value Date Recorded Sex Assigned at Not on file Legal Sex Female 1:40 PM CDT Gender Identity Not on file Sexual Orientation Not on file Last Filed Vital Signs Vital Sign Reading Time Taken Comments Blood Pressure 108/66 03/21/2025 8:46 AM CDT Pulse 80 03/21/2025 8:46 AM CDT Temperature 36.6 C (97.9 F) 03/21/2025 8:46 AM CDT Respiratory Rate 20 02/01/2025 8:25 AM CDT Oxygen Saturation 100% 02/01/2025 8:40 AM CDT Inhaled Oxygen Concentration - - Weight 99.8 kg (220 lb) 03/21/2025 8:46 AM CDT Height 172.7 cm (5' 8) 03/21/2025 8:46 AM CDT Body Mass Index 33.45 03/21/2025 8:46 AM CDT Plan of Treatment Not on file Procedures Procedure Name Priority Date/Time Associated Diagnosis Comments CT ABDOMEN PELVIS W CONTRAST Schedule Routine, Read Routine (OP Routine) 04/06/2025 12:56 PM CDT Diarrhea, unspecified type SURGICAL PATHOLOGY Routine 02/01/2025 8: 11 AM CDT Diarrhea, unspecified type COLON BIOPSY 02/01/2025 7:58 AM CDT Diarrhea, unspecified type COLONOSCOPY 02/01/2025 7:44 AM CDT from Last 3 Months Results * CT Abd/Pelvis with contrast (04/06/2025 12:56 PM CDT) Anatomical Region Laterality Modality Body N/A Computed Tomogra phy 04/06/2025 1:04 PM CDT Impressions 04/06/2025 1:04 PM CDT Normal appearance of the colon and small bowel. No findings to account for the patient's reported symptoms. Electronically signed by: Azam Kendrick M.D. Narrative 04/06/2025 1:04 PM CDT EXAMINATION: Computed tomography of the abdomen and pelvis with intravenous contrast HISTORY: Unintended weight loss, diarrhea TECHNIQUE: Transaxial computed tomographic images of the abdomen and pelvis were obtained with intravenous contrast according to the standard protocol after the uneventful administration of 70 mL Opti-Ray 350 intravenous contrast. COMPARISON: None FINDINGS: Minimal bibasilar atelectasis. Normal heart size without pericardial effusion. Partially imaged bilateral breast implants. Tiny hiatal hernia. There is focal fat deposition in the liver along the falciform ligament. Suspicious liver lesions or intrahepatic ductal dilation. The portal and hepatic veins are patent. The gallbladder and common bile duct are normal. The spleen is normal. There is fatty infiltration of the pancreas without a suspicious pancreatic abnormality. The adrenal glands and right kidney are normal. Tiny nonobstructing left renal stone. No hydronephrosis or renal masses. The stomach and duodenum are normal. Urinary bladder, uterus and adnexa are normal. The colon, small bowel, and appendix are normal caliber without obstruction or inflammation. No lymphadenopathy, free fluid, or free intraperitoneal air. No significant atherosclerotic calcification or suspicious bone lesion. Procedure Note Azam Kendrick MD - 04/06/2025 EXAMINATION: Computed tomography of the abdomen and pelvis with intravenous contrast HISTORY: Unintended weight loss, diarrhea TECHNIQUE: Transaxial computed tomographic images of the abdomen and pelvis were obtained with intravenous contrast according to the standard protocol after the uneventful administration of 70 mL Opti-Ray 350 intravenous contrast. COMPARISON: None FINDINGS: Minimal bibasilar atelectasis. Normal heart size without pericardial effusion. Partially imaged bilateral breast implants. Tiny hiatal hernia. There is focal fat deposition in the liver along the falciform ligament. Suspicious liver lesions or intrahepatic ductal dilation. The portal and hepatic veins are patent. The gallbladder and common bile duct are normal. The spleen is normal. There is fatty infiltration of the pancreas without a suspicious pancreatic abnormality. The adrenal glands and right kidney are normal. Tiny nonobstructing left renal stone. No hydronephrosis or renal masses. The stomach and duodenum are normal. Urinary bladder, uterus and adnexa are normal. The colon, small bowel, and appendix are normal caliber without obstruction or inflammation. No lymphadenopathy, free fluid, or free intraperitoneal air. No significant atherosclerotic calcification or suspicious bone lesion. IMPRESSION: Normal appearance of the colon and small bowel. No findings to account for the patient's reported symptoms. Electronically signed by: Azam Kendrick M.D. Rosie Hughes NP IM CT PROCEDURES Final Result * Surgical pathology (02/01/2025 8:11 AM CDT) Tissue (Colon, Biopsy) 02/01/2025 8:11 AM CDT Tissue specimen (specimen) (Colon, Biopsy) 02/01/2025 8:11 AM CDT Tissue specimen (specimen) (Colon, Biopsy) 02/01/2025 8:13 AM CDT Tissue specimen (specimen) (Colon, Biopsy) 02/01/2025 8:16 AM CDT Narrative PATHOLOGY [facility] - 02/02/2025 1:26 PM CDT [address] [address] Tele: Rosenda Faulkner MD - Captain Waiter/Waitress Note to Patients: This report may contain a detailed description of human tissue sent by a health care provider to the laboratory for pathologic evaluation. The content of this report is essential for diagnosis and may provide important critical findings. This information may be unfamiliar to patients to review without a medical professional present. It is advised that the patient review this report in the presence of a health care provider who can answer questions and explain the details. SURGICAL PATHOLOGY REPORT Patient Name: AZUL DAVIDSON Address: [address] [place] [address] Gender: F : 1970 (Age: 54) Service: Gastro Location: [facility], Hospital #: [id number] Patient Type: [facility] SAME DAY SURGERY Taken: 02/01/2025 Received 02/01/2025 Reported: 02/02/2025 Physician(s): Simba Ward M.D. DIAGNOSIS: Colon, right, biopsy: - No histopathologic abnormality Small intestine, terminal ileum, biopsy: - No histopathologic abnormality Colon, left, biopsy: - No histopathologic abnormality Rectum, biopsy: - No histopathologic abnormality dms/02/02/2025 13:26 Examining Pathologist: Francis Montanez MD, PhD Report Reviewed and Electronically Signed By Francis Montanez MD, PhD SPECIMEN TYPE: A: RIGHT COLON BX B: TERMINAL ILEUM BX C: LEFT COLON BX D: RECTAL BX CLINICAL IMPRESSION AND HISTORY: 54-year-old woman with clinically significant diarrhea of unexplained origin, negative stool workup, colonoscopy for microscopic colitis evaluation. Exam findings: Preparation of the colon was inadequate. The examined portion of the ileum was normal. Biopsy. Stool in the entire examined colon precluding evaluation for polyp. Normal colonic mucosa otherwise without findings explained diarrhea. Biopsy to evaluate for microscopic colitis. GROSS DESCRIPTION: The tissue is received in four containers of formalin all labeled with the patient's name AZUL DAVIDSON. A. The first container is additionally labeled right colon biopsy and contains two tissue fragments measuring 0.8 x 0.2 x 0.1 cm in aggregate. Due to the color and size of the specimen, eosin is used. The specimen is filtered and submitted entirely in cassette A1. B. The second container is additionally labeled terminal ileum biopsy and contains two tissue fragments measuring 0.5 x 0.1 x 0.1 cm in aggregate. Due to the color and size of the specimen, eosin is used. The specimen is filtered and submitted entirely in cassette B1. C. The third container is additionally labeled left colon biopsy and contains multiple tissue fragments measuring 1.2 x 0.2 x 0.1 cm in aggregate. Due to the color and size of the specimen, eosin is used. The specimen is filtered and submitted entirely in cassette C1. D. The fourth container is additionally labeled rectal biopsy and contains a 0.6 x 0.2 x 0.1 cm tissue fragment. Due to the color and size of the specimen, eosin is used. The specimen is filtered and submitted entirely in cassette D1. [facility]/02/01/2025 16:14 J[facility] MICROSCOPIC DESCRIPTION: Sections of the right colon biopsy demonstrate unremarkable colonic mucosa without acute inflammation, granulomata, or features of microscopic colitis. Sections of the terminal ileum biopsy demonstrate unremarkable ileum mucosa without acute inflammation, granulomata, or evidence of dysplasia or malignancy. Normal villous architecture is present. No increased intraepithelial lymphocytes are seen. Sections of the left colon biopsy demonstrate unremarkable colonic mucosa without acute inflammation, granulomata, or features of microscopic colitis. Sections of the rectal biopsy demonstrate unremarkable rectal mucosa without acute inflammation, granulomata, or features of microscopic proctitis. Clerical Data Follows A; 87687 B; 71071 C; 50521 D; 66763 REPORT IMAGES AND/OR SCANNED DOCUMENTS ONLY VIEWABLE IN PDF FORMAT The immunohistochemical test(s) cited in this report, if any, was developed and its performance characteristics determined by [facility] Pathology Department. It has not been cleared or approved by the U.S. Food and Drug Administration. The FDA has determined that such clearance or approval is not necessary. This test is used for clinical purposes. It should not be regarded as investigational or for research. [facility] Laboratory is certified under the Clinical Laboratory Improvement Amendments of 1988 (CLIA) as qualified to perform high complexity testing. Immunostains were performed on formalin-fixed paraffin embedded tissue using a polymer diaminobenzidine chromogen detection system. Antibodies used may include clone SP1 (rabbit monoclonal, estrogen receptor), clone 1E2 (rabbit monoclonal progesterone receptor), Ki-67 (rabbit monoclonal, 30-9), CD117 (rabbit polyclonal, c-kit), and anti-Her-2/chelsie (4B5) (rabbit monoclonal primary antibody). In the event that immunohistochemistry or special stains have been performed, attending physician has confirmed appropriateness of controls. Frozen section, operating room consultation, gross examination and dissection, and case sign out may have been performed in part or completely in the following laboratories: [facility], [address] [facility], [place] [address] [facility], [address] [facility], [place] [address]. Tay Solis MD LAB PATHOLOGY ORDERAB LES Final Result PATHOLOGY [facility] Laboratory Receiving [facility] [place] [address] * Colonoscopy (02/01/2025 7:44 AM CDT) Anatomical Region Laterality Modality Other Narrative Procedure Note Tay Solis MD - 02/01/2025 7:44 AM CDT ENDOSCOPY LAB Patient Name: Azul Davidson Procedure Date: 02/01/2025 7:44 AM Admit Type: Outpatient Room: [facility] Date of : 1970 Instrument Name: [id number] Gender: Female Note Status: Finalized Procedure: Colonoscopy Indications: Clinically significant diarrhea of unexplainedorigin, negative stool workup, colonsocopy for microscopic colitis r/out Providers: Tay Solis M.D. Referring MD: Sakina Gibson M.D. Medicines: Monitored Anesthesia Care Complications: No immediate complications. Estimated Blood Loss: Estimated blood loss: none. Procedure: Pre-Anesthesia Assessment: - Prior to the procedure, a History and Physicalwas performed, and patient medications, allergies and sensitivities were reviewed. The patient'stolerance of previous anesthesia was reviewed. - The risks and benefits of the procedure and the sedation options and risks were discussed with the patient. All questions were answered and informed consent was obtained. - Patient identification and proposed procedurewere verified prior to the procedure by the physician,the nurse and the anesthesiologist. The procedure was verified in the procedure room. - ASA Grade Assessment: II - A patient with mild systemic disease. - Monitored anesthesia care under the supervisionof a LUSTERER was determined to be medically necessary forthis procedure based on review of the patient's medical history, medications, and prior anesthesiahistory. The benefits, risks and alternatives of theprocedure and sedation were discussed and informed consentwas obtained. All questions were answered. Please referto the signed informed consent document in the medical record. The scope was passed under direct vision.The Colonoscope was introduced through the anus and advanced to the the terminal ileum, with identification of the appendiceal orifice and IC valve. The colonoscopy was performed without difficulty. The patient tolerated the procedurewell. The quality of the bowel preparation was poor with stool throughout and inadequate for polypevaluation. The bowel preparation used was GoLYTELY via splitdose instruction. Findings: The perianal and digital rectal examinations were normal. The terminal ileum appeared normal. Biopsies were taken with a cold forceps for histology. Semi-solid stool was found in the entire colon, interfering with visualization. Bowel prep inadequate for polyp detection. The mucosaof the colon, where seen, appeared normal. Biopsies for histology were taken with a cold forceps from the right colon, left colon and rectum for evaluation of microscopic colitis. Impression: - Preparation of the colon was inadequate. - The examined portion of the ileum was normal. Biopsied. - Stool in the entire examined colon precludinfg evalaution for polyp. - Normal colon mucosa otherwise without findings to explain diarrhea. Biopsied as above to r/omicroscopic colitis. Recommendation: - The patient will be observed post-procedure,until all discharge criteria are met. - Advance diet as tolerated today. - Await pathology results. - Repeat colonsocopy in 1 year for standard polyp surveillance with two day bowel prep (last [id number]). - In the unusual situation that you developabdominal, bleeding or other significant problems in the days following this procedure please call [phone] After hours and evenings please call [phone] speak to the GI fellow university relations director. Please tell thefellow that Dr. Solis did your procedure and that you were instructed to have the fellow call me or the physician covering for me to discuss the managementof your condition.. If you have an urgent problem,please go to the nearest emergency room and have the ER doctor call my office during the day or [facility][phone] after hours and weekends to arrange admission or transfer to our facility. Electronically signed by Tay Solis MD Tay Solis M.D. 02/01/2025 8:30:28 AM This document was signed electronically. Number of Addenda: 0 Note Initiated On: 02/01/2025 7:44 AM Scope Withdrawal Time: 0 hours 8 minutes 22 seconds Scope In: 8:04:32 AM Scope Out: 8:18:04 AM us Tay Solis MD ENDOSCOPY PROCEDURES Final Result from Last [address] [email or web address] [facility] [email or web address] [place] Advance Directives For more information, please contact: [phone] * Full Code (Latest Code Status on File) Date Activated Date Inactivated Comments 01/12/2025 12:23 PM 01/12/2025 6:15 PM * Full Code Date Activated Date Inactivated Comments 10/20/2024 1:17 PM 10/20/2024 6:50 PM * Full Code Date Activated Date Inactivated Comments 01/26/2022 8:11 PM 01/27/2022 6:08 PM * Full Code Date Activated Date Inactivated Comments 11/21/2021 8:13 AM 11/21/2021 1:40 PM * Full Code Date Activated Date Inactivated Comments 08/04/2021 7:45 AM 08/04/2021 1:19 PM Care Teams Urban Planning Teacher Relationship Specialty Start Date End Date Sakina Gibson MD [address] [place] [address] PCP - General Internal Medicine 06/25/20 Nancy Martinez MD [address] [place] [address] Internal Medicine 03/13/25 Katie Khalil MD [address] [place] [address] Medical Oncologist/Wilderness Guide Medical Oncology 04/16/25
--- OUTSIDE RECORDS SUMMARY | 2025-04-24 11:23 | XMS_ITS | Clinical Summary ---
Author Organization [facility] [place] [facility] [address] Address [address] [place] [address] Care Team Providers Care Side Puller Name Role Phone Sakina Gibson MD Primary Care Provider + [phone] Nancy Martinez MD Unavailable [phone] Katie Khalil MD Unavailable [phone] Allergies Active Allergy Reactions Criticality Noted Date [...] 01/26/2022 Pulmonary embolism 03/20/2021 Current use of roasterman anticoagulation 021 Gastroesophageal reflux disease without esophagi tis 03/20/2021 Primary osteoarthritis of right knee 02/17/2019 Resolved Problems Problem Noted Date Diagnosed Date Resolved Date Rodriguez's esophagus with dys plasia, unspecified 03/20/2021 03/26/2025 Encounters Date Type Department Care Team Description 04/10/2025 Telephone [facility] Gastroenterology [address] [place] [address] Medical Office Building [address], [address] [place] [address] Agatha Mclain, DAVI Prior Auth (Xifaxan 550MG tablets) 04/09/2025 Results Follow-Up [facility] Gastroenterology [address] [place] [address] Medical Office Building [address], [address] [place] [address] Abd/Pelvis with contrast 04/09/2025 Telephone [facility] Oncology [address] [place] [address] 8 [place] [address] Jodie Jurado 04/09/[address] [address] Kandace Dominique RN 04/09/2025 Orders Only [facility] Gastroenterology [address] [place] [address] Medical Office Building [address], [address] [place] [phone] Rosie Hughes NP 04/06/2025 11:47 AM CDT - 04/06/2025 11:59 PM CDT Hospital Encounter [facility] [address] [place] [address] Diarrhea, unspecified type Discharge Disposition: Discharge to home or self care 04/02/2025 Telephone [facility] Oncology [address] [place] [address] Floor 8 [place] [address] Jodie Jurado 04/02/[address] [address] Kajal Horner RN Appointment/Schedul es 03/26/2025 Telephone [facility] Gastroenterology [address] [facility] 12th [place] [address] [place] [address] MichelaKalenXiomy 03/21/2025 9:00 AM CDT Office Visit [facility] Gastroenterology [address] [facility] [address]th [place] [address] [place] [address] Rosie Hughes NP Diarrhea, unspecified type (Primary Dx); Weight loss; Gastroesophageal reflux disease without esophagitis; Rodriguez's esophagus without dysplasia 03/21/2025 Telephone [facility] [address] [place] [address] Kandace Dominique RN 02/13/2025 Telephone [facility] Gastroenterology [address] [facility] Medical Office Building [address], [address] [place] [address] Agatha Mclain RN Procedure Results 02/06/2025 Results Follow-Up [facility] Gastroenterology [address] [facility] 2nd Floor [address] [place] [address] Tay Solis MD Surgical pathology 02/01/2025 8:00 AM CDT - 02/01/2025 8:30 AM CDT Surgery [facility] [address] [place] [address] Tay Solis MD COLON BIOPSY 02/01/2025 7:57 AM CDT Anesthesia Event [facility] [address] [place] [address] Rosenda Palacios MD Winfrey, Tonya M., DENNIS 02/01/2025 6:53 AM CDT - 02/01/2025 8:55 AM CDT Hospital Encounter [facility] [address] [place] [address] BaTay little MD Diarrhea, unspecified type Discharge Disposition: Discharge to home or self care 01/25/2025 Results Follow-Up [facility] Gastroenterology [address] [facility] 2nd Floor [address] [place] [address] Tay Solis MD Surgical pathology 01/24/2025 Telephone [facility] Gastroenterology [address] [facility] Medical Office Building [address], [address] [place] [address] Loyda Bhatt RN Procedure Results from Last 3 Months Surgical History Surgery Date Site/Laterality Comments HYSTERECTOMY KNEE ARTHROPLASTY Bilateral UPPER GASTROINTESTINAL ENDOSCOPY COLONOSCOPY MASTECTOMY 09/20/2017 - 09/19/2018 Bilateral HIATAL HERNIA REPAIR Re-do 01/26/22 Medical History Medical History Date Comments Breast cancer (HCC) 2018 chemoradiati on, anastrozole Rodriguez esophagus GERD (gastroesophageal reflux disease) Hiatal hernia PE (pulmonary thromboembolism) 10/2019 Family History Medical History Relation Name Comments No Known Problems Other Anesthesia problems Neg Hx Relation Name Status Comments Other Social History Tobacco Use Types Packs/Day Years [...] on file Sexual Orientation Not on file Obstetrics History Last Filed Vital Signs Vital Sign Reading [...] 03/21/2025 8:46 AM CDT Plan of Treatment Health Maintenance Due Date Last Done Comments Breast Cancer Screening-Mammogram 1972 Depression Screening 1972 Hepatitis C Screening 1972 DTaP/Tdap/Td Vaccine (1 - Tdap) 1983 Hepatitis B Screening 1990 Regular Well Visit/Exam 18-64 1990 Pneumococcal vaccine <65 (1 of 2 - PCV) 1991 Zoster Vaccine (1 of 2) 1991 Influenza Vaccine (#1) 2025 , 06/16/2019, 07/04/2018 Colon Cancer Screening-Colonoscopy 02/01/20352024, 08/26/2022 Procedures Procedure Name Priority Date/Time Associated Diagnosis [...] Electronically signed by: Azam Kendrick M.D. Rosie Saira Hughes NP IM CT PROCEDURES Final Result * Surgical pathology (02/01/2025 8:11 AM CDT) Tissue (Colon, Biopsy) 02/01/2025 8:11 AM CDT Tissue specimen (specimen) (Colon, Biopsy) 02/01/2025 8:11 AM CDT Tissue specimen (specimen) (Colon, Biopsy) 02/01/2025 8:13 AM CDT Tissue specimen (specimen) (Colon, Biopsy) 02/01/2025 8:16 AM CDT Narrative PATHOLOGY [facility] - 02/02/2025 1:26 PM CDT [address] [address] Tele: Rosenda Faulkner MD - Crane Hooker Note to Patients: This report may contain [...] PATHOLOGY REPORT Patient Name: AZUL DAVIDSON Address: [address] [place] [address] Gender: F : 1970 (Age: 54) Service: Gastro Location: [facility], Hospital #: [id number] Patient Type: [facility] SAME DAY SURGERY Taken: 02/01/2025 Received 02/01/2025 Reported: 02/02/2025 Physician(s): Simba Ward M.D. DIAGNOSIS: Colon, right, biopsy: - No histopathologic abnormality Small intestine, terminal ileum, biopsy: - No histopathologic abnormality Colon, left, biopsy: - No histopathologic abnormality Rectum, biopsy: - No histopathologic abnormality [facility]/02/02/2025 13:26 Examining Pathologist: Francis Montanez MD, PhD [...] filtered and submitted entirely in cassette D1. [facility]/02/01/2025 16:14 [facility] [...] of microscopic proctitis. Clerical Data Follows A; 95674 B; 31580 C; 99990 D; 36589 REPORT IMAGES AND/OR SCANNED DOCUMENTS ONLY VIEWABLE IN PDF FORMAT The immunohistochemical test(s) cited in this report, if any, was developed and its performance characteristics determined by [facility] Pathology Department. It has not been cleared or approved by the U.S. Food and Drug Administration. The FDA has determined that such clearance or approval is not necessary. This test is used for clinical purposes. It should not be regarded as investigational or for research. [facility] Laboratory is certified under the Clinical Laboratory [...] part or completely in the following laboratories: [facility], [address] [place] [address], [address] [place] [address]. Tay Solis MD LAB PATHOLOGY ORDERAB LES Final Result PATHOLOGY [facility] Laboratory Receiving [address] [place] [address] * Colonoscopy (02/01/2025 7:44 AM CDT) Anatomical Region Laterality Modality Other Narrative Procedure Note Tay Solis MD - 02/01/2025 7:44 AM CDT ENDOSCOPY LAB Patient Name: Azul Davidson Procedure Date: 02/01/2025 7:44 AM Admit Type: Outpatient Room: [facility] Date of : 1970 Instrument Name: [...] Monitored anesthesia care under the supervisionof a SILVER BUFFER was determined to be medically necessary forthis [...] surveillance with two day bowel prep (last [id number]). - In the unusual situation that you developabdominal, bleeding or other significant problems in the days following this procedure please call [phone] After hours and evenings please call [phone] speak to the GI fellow bilingual receptionist. Please tell thefellow that Dr. Solis did your procedure and that you were instructed to have the fellow call me or the physician covering for me to discuss the managementof your condition.. If you have an urgent problem,please go to the nearest emergency room and have the ER doctor call my office during the day or Cory ([phone] center after hours and weekends to arrange admission or transfer to our facility. Electronically signed by Tay Solis MD Tay Solis M.D. 02/01/2025 8:30:28 AM This document was signed electronically. Number of Addenda: 0 Note Initiated On: 02/01/2025 7:44 AM Scope Withdrawal Time: 0 hours 8 minutes 22 seconds Scope In: 8:04:32 AM Scope Out: 8:18:04 AM Tay Solis MD ENDOSCOPY PROCEDURES Final Result from Last [address] [facility] [address] [place] [facility] Advance Directives For more information, please contact: [phone] * Full Code (Latest Code Status on [...] 7:45 AM 08/04/2021 1:19 PM Care Teams Side Puller Relationship Specialty Start Date End Date Sakina Gibson MD [address] [place] [address] PCP - General Internal Medicine 06/25/20 Nancy Martinez MD [address] [place] [address] Internal Medicine 03/13/25 Katie Khalil MD [address] [place] [address] Medical Oncologist/Entertainment Usher Medical Oncology 04/16/25
== END 2025-04-24 10:51 | disposition home or self-care (01) ==
PROVIDERS: PCP Internal Medicine; Visit Provider Nurse Practitioner Family
DX: N89.8 Other specified noninflammatory disorders of vagina (principal)
CPT/HCPCS: 87798; 88175; G0145